=== PATIENT | female | born 1940 | race Caucasian/White ===

== ENCOUNTER 2019-04-18 16:37 | Inpatient (IN) | payer OTHER ==
[2019-04-18] MEDS ORDERED: CEFTRIAXONE/SWI 1gm 1 GM/10 ML SYR ONE (17:12)
[2019-04-18] MEDS ORDERED: NA CHLORIDE 0.9% 1,000 ML ONE (17:12)
[2019-04-18 17:43] LABS: Basophils % 0.4 % (0-1.3); Hematocrit 35.2 % (36.0-45.0); MPV 8.3 fL (7.6-11.3); Protime INR 1.24; RBC Red Blood Cell Count 3.95 M/uL (3.86-4.86)
[2019-04-18 17:56] LABS: ALT/SGPT 14 U/L (12-78); AST/SGOT 18 U/L (15-37); Alkaline Phosphatase 76 U/L (45-117); BUN Blood Urea Nitrogen 13 mg/dL (7-18); Bicarbonate 24 mmol/L (21-32); Bilirubin Direct 0.3 mg/dL (0-0.2); Glucose Level 153 mg/dL (74-106); NT PRO-BNP 1294 pg/mL (<450); Protein, Total 7.4 g/dL (6.4-8.2); Sodium Level 132 mmol/L (136-145); Troponin (Emerg Dept Use Only) < 0.02 ng/mL (0.0-0.045)
[2019-04-18 17:57] LABS: Magnesium 1.4 mg/dL (1.8-2.4)
--- NOTE | 2019-04-18 18:13 | RAD REPORT ---
EXAM DESCRIPTION: Yamila Single View04/18/2019 5:51 pm CLINICAL HISTORY: Cough COMPARISON: 2018 FINDINGS: The lungs appear clear of acute infiltrate. The heart is normal size. Right hemidiaphragm is mildly elevated
[2019-04-18] MEDS ORDERED: POTASSIUM 25 MEQ EFFERV TAB ONE (18:18)
[2019-04-18] MEDS ORDERED: Magnesium Sulfate 2gm IVPB 2 G/50 ML BAG IV ONE (18:19)
--- NOTE | 2019-04-18 18:46 | EDPHYS ---
Physician Documentation [facility] Name: Salena Heath Age: 78 yrs Sex: Female : 1940 Arrival Date: 04/18/2019 Time: 16:[address] Private MD: ED Physician Tanmay Marshall HPI: 04/18 17:07 This 78 yrs old Female presents to ER via Wheelchair with complaints of Flu black Symptoms. 17:07 The patient or guardian reports airway noise, cough. Onset: The symptoms/episode black began/occurred 2 day(s) ago. Modifying factors: The symptoms are alleviated by nothing. the symptoms are aggravated by nothing. fever, maliase. Associated signs and symptoms: Pertinent positives: fever. Severity of symptoms: At their worst the symptoms were mild in the emergency department the symptoms are unchanged. The patient has experienced similar episodes in the past, a few times. Historical: - Allergies: 16:46 Codeine; aj1 16:46 Demerol; aj1 - Home Meds: 16:46 Actos 15 mg Oral tab 1 tab once daily [Active]; carvedilol 25 mg Oral tab 1 tab every aj1 12 hours [Active]; Flexeril 10 mg Oral tab nightly [Active]; glimepiride 4 mg Oral tab twice a day [Active]; Januvia 15 mg Oral once daily [Active]; levothyroxine 75 mcg tab 1 tab once daily [Active]; Lexapro 10 mg Oral tab 1 tab once daily [Active]; Norvasc 2.5 mg Oral tab 1 tab once daily [Active]; - PMHx: 16:46 Diabetes - NIDDM; Hypertension; Thyroid problem; aj1 - Immunization history:: Flu vaccine is not up to date. - Coronavirus screen:: The patient has NOT traveled to [place] in the past 14 days. - Social history:: Smoking status: Patient/guardian denies using tobacco. - Family history:: not pertinent. - Ebola Screening: : Patient denies travel to an Ebola-affected area in the 21 days before illness onset. ROS: 17:07 Constitutional: Negative for fever, chills, and weight loss, Eyes: Negative for injury, black pain, redness, and discharge, ENT: Negative for injury, pain, and discharge, Neck: Negative for injury, pain, and swelling, Cardiovascular: Negative for chest pain, palpitations, and edema, Back: Negative for injury and pain, : Negative for injury, bleeding, discharge, and swelling, MS/Extremity: Negative for injury and deformity, Skin: Negative for injury, rash, and discoloration, Psych: Negative for depression, anxiety, suicide ideation, homicidal ideation, and hallucinations, Allergy/Immunology: Negative for hives, rash, and allergies, Endocrine: Negative for neck swelling, polydipsia, polyuria, polyphagia, and marked weight changes, Hematologic/Lymphatic: Negative for swollen nodes, abnormal bleeding, and unusual bruising. 17:07 Respiratory: Positive for cough. 17:07 Abdomen/GI: Positive for nausea. 17:07 Neuro: Positive for weakness. Exam: 17:07 Constitutional: This is a well developed, well nourished patient who is awake, alert, black and in no acute distress. Head/Face: Normocephalic, atraumatic. Eyes: Pupils equal round and reactive to light, extra-ocular motions intact. Lids and lashes normal. Conjunctiva and sclera are non-icteric and not injected. Cornea within normal limits. Periorbital areas with no swelling, redness, or edema. ENT: Nares patent. No nasal discharge, no septal abnormalities noted. Tympanic membranes are normal and external auditory canals are clear. Oropharynx with no redness, swelling, or masses, exudates, or evidence of obstruction, uvula midline. Mucous membranes moist. Neck: Trachea midline, no thyromegaly or masses palpated, and no cervical lymphadenopathy. Supple, full range of motion without nuchal rigidity, or vertebral point tenderness. No Meningismus. Chest/axilla: Normal chest wall appearance and motion. Nontender with no deformity. No lesions are appreciated. Cardiovascular: Regular rate and rhythm with a normal S1 and S2. No gallops, murmurs, or rubs. Normal PMI, no JVD. No pulse deficits. Respiratory: Lungs have equal breath sounds bilaterally, clear to auscultation and percussion. No rales, rhonchi or wheezes noted. No increased work of breathing, no retractions or nasal flaring. Abdomen/GI: Soft, non-tender, with normal bowel sounds. No distension or tympany. No guarding or rebound. No evidence of tenderness throughout. Back: No spinal tenderness. No costovertebral tenderness. Full range of motion. Skin: Warm, dry with normal turgor. Normal color with no rashes, no lesions, and no evidence of cellulitis. MS/ Extremity: Pulses equal, no cyanosis. Neurovascular intact. Full, normal range of motion. Neuro: Awake and alert, GCS 15, oriented to person, place, time, and situation. Cranial nerves II-XII grossly intact. Motor strength 5/5 in all extremities. Sensory grossly intact. Cerebellar exam normal. Normal gait. Psych: Awake, alert, with orientation to person, place and time. Behavior, mood, and affect are within normal limits. 17:07 Musculoskeletal/extremity: DVT Exam: No signs of deep vein thrombosis. no pain, no swelling, no tenderness, negative Homans' sign noted on exam, no appreciated bluish discoloration, no erythema, no increased warmth. Vital Signs: 16:46 BP 111 / 82; Pulse 92; Resp 20; Temp 97.4; Pulse Ox 95% on R/A; Weight 72.57 kg (R); aj1 Height 5 ft. 2 in. (157.48 cm) (R); Pain 0/10; 18:09 BP 122 / 67; Pulse 78; Resp 17; Pulse Ox 98% on R/A; ae4 19:35 BP 115 / 65; Pulse 75; Resp 19; Temp 98.1; Pulse Ox 96% ; rr5 20:15 BP 135 / 85; Pulse 70; Resp 17; Pulse Ox 99% on R/A; rr5 16:46 Body Mass Index 29.26 (72.57 kg, 157.48 cm) aj1 MDM: 16:[address] [facility] 17:09 Data reviewed: vital signs, nurses notes, lab test result(s), EKG, radiologic studies, black plain films. 04/18 17:03 Order name: Basic Metabolic Panel [facility] 04/18 17:03 Order name: CBC with Diff [facility] 04/18 17:03 Order name: LFT's [facility] 04/18 17:03 Order name: Magnesium [facility] 04/18 17:03 Order name: NT PRO-BNP [facility] 04/18 17:03 Order name: PT-INR [facility] 04/18 17:03 Order name: Troponin (emerg Dept Use Only) [facility] 04/18 17:03 Order name: Influenza Screen (a \T\ B) [facility] 04/18 17:03 Order name: Blood Culture Adult (2) [facility] 04/18 17:04 Order name: Urine Culture [facility] 04/18 17:06 Order name: Lactate [facility] 04/18 17:56 Order name: CBC with Automated Diff; Complete Time: 18:01 [facility] 04/18 17:56 Order name: Protime (+INR); Complete Time: 18:01 [facility] 04/18 17:56 Order name: Lactate; Complete Time: 18:01 [facility] 04/18 17:03 Order name: Chest Pa And Lat (2 Views) XRAY [facility] 04/18 17:59 Order name: Basic Metabolic Panel; Complete Time: 18:01 [facility] 04/18 17:59 Order name: Liver (Hepatic) Function; Complete Time: 18:01 [facility] 04/18 17:59 Order name: Troponin (Emerg Dept Use Only); Complete Time: 18:01 [facility] 04/18 17:59 Order name: NT PRO-BNP; Complete Time: 18:01 [facility] 04/18 17:59 Order name: Magnesium; Complete Time: 18:01 [facility] 04/18 18:06 Order name: Influenza Screen (A ; Complete Time: 18:41 [facility] 04/18 18:39 Order name: RAD; Complete Time: 18:41 [facility] 04/18 19:26 Order name: CT Stone Protocol [facility] 04/18 19:28 Order name: Urine Microscopic Only ct 04/18 19:29 Order name: Urine Dipstick--Ancillary (enter results) ct 04/18 20:03 Order name: Urine Microscopic Only [facility] 04/18 20:16 Order name: Urine Dipstick-Ancillary [facility] 04/18 20:24 Order name: CT [facility] 04/18 17:03 Order name: EKG; Complete Time: 17:04 [facility] 04/18 17:03 Order name: Cardiac monitoring; Complete Time: 17:25 [facility] 04/18 17:03 Order name: EKG - Nurse/Tech; Complete Time: 17:25 [facility] 04/18 17:03 Order name: IV Saline Lock; Complete Time: 17:25 [facility] 04/18 17:03 Order name: Labs collected and sent; Complete Time: 17:25 [facility] 04/18 17:03 Order name: O2 Per Protocol; Complete Time: 17:25 [facility] 04/18 17:03 Order name: O2 Sat Monitoring; Complete Time: 17:25 [facility] 04/18 17:04 Order name: Urine Dipstick-Ancillary (obtain specimen); Complete Time: 19:44 [facility] Administered Medications: 17:20 Drug: NS 0.9% 1000 ml Route: IV; Rate: 1 bolus; Site: right antecubital; ae4 18:03 Follow up: IV Status: Completed infusion; IV Intake: 1000ml ae4 17:54 Drug: Rocephin 1 grams Route: IV; Rate: per protocol; Site: right antecubital; ae4 19:00 Follow up: Response: No adverse reaction; IV Status: Completed infusion; IV Intake: [id number] 18:15 Drug: Potassium Effervescent Tablet 50 mEq Route: PO; ae4 19:01 Follow up: Response: No adverse reaction ae4 18:15 Drug: Magnesium Sulfate 2 grams Route: IVPB; Infused Over: 2 hrs; Site: right ae4 antecubital; 20:25 Follow up: Response: No adverse reaction; IV Status: Completed infusion; IV Intake: rr5 100ml 20:27 Drug: NS 0.9% with KCl 20 mEq/L 1000 ml Route: IV; Rate: 125 ml/hr; Site: right rr5 antecubital; 20:27 Follow up: IV Status: Infusion continued upon admission rr5 Disposition: 04/18/19 18:45 Hospitalization ordered by Carlos Garner for Inpatient Admission. Preliminary diagnosis are Fever, unspecified, Hypokalemia, Hypomagnesemia, Syncope and collapse - near, Urinary tract infection, site not specified, Type 2 diabetes mellitus. - Bed requested for Telemetry/MedSurg (Inpatient). - Status is Inpatient Admission. rr5 - Condition is Stable. - Problem is new. - Symptoms have improved. Signatures: Dispatcher [employer] EDGauri Katz RN RN aj1 Dominga Phillips RN RN mw Anderson, Corey, MD MD cha Roque, Raymond, RN RN rr5 Serjio Mark RN RN ae4 Corrections: (The following items were deleted from the chart) 19:13 18:45 Hospitalization Ordered by Carlos Garner MD for Inpatient Admission. Preliminary diagnosis is Fever, unspecified; Hypokalemia; Hypomagnesemia; Syncope and collapse - near. Bed requested for Telemetry/MedSurg (Inpatient). Status is Inpatient Admission. Condition is Stable. Problem is new. Symptoms have improved. black 19:27 19:13 04/18/2019 18:45 Hospitalization Ordered by Carlos Garner MD for Inpatient black Admission. Preliminary diagnosis is Fever, unspecified; Hypokalemia; Hypomagnesemia; Syncope and collapse - near. Bed requested for Telemetry/MedSurg (Inpatient). Status is Inpatient Admission. Condition is Stable. Problem is new. Symptoms have improved. mw 19:27 19:27 04/18/2019 18:45 Hospitalization Ordered by Carlos Garner MD for Inpatient black Admission. Preliminary diagnosis is Fever, unspecified; Hypokalemia; Hypomagnesemia; Syncope and collapse - near; Urinary tract infection, site not specified. Bed requested for Telemetry/MedSurg (Inpatient). Status is Inpatient Admission. Condition is Stable. Problem is new. Symptoms have improved. black 20:57 19:27 04/18/2019 18:45 Hospitalization Ordered by Carlos Garner MD for Inpatient rr5 Admission. Preliminary diagnosis is Fever, unspecified; Hypokalemia; Hypomagnesemia; Syncope and collapse - near; Urinary tract infection, site not specified; Type 2 diabetes mellitus. Bed requested for Telemetry/MedSurg (Inpatient). Status is Inpatient Admission. Condition is Stable. Problem is new. Symptoms have improved. black
--- NOTE | 2019-04-18 18:46 | ER ---
Nurse's Notes [facility] Name: Salena Heath Age: 78 yrs Sex: Female : 1940 Arrival Date: 04/18/2019 Time: 16:[address] Private MD: Diagnosis: Fever, unspecified;Hypokalemia;Hypomagnesemia;Syncope and collapse-near;Urinary tract infection, site not specified;Type 2 diabetes mellitus Presentation: 04/18 16:44 Presenting complaint: Patient states: "its started night with chills and fever aj1 and its just been like that every day." Denies cough, congestion, Denies N/V/D. Transition of care: patient was not received from another setting of care. Onset of symptoms was April 2019. Risk Assessment: Do you want to hurt yourself or someone else? Patient reports no desire to harm self or others. Initial Sepsis Screen: Does the patient meet any 2 criteria? HR > 90 bpm. No. Patient's initial sepsis screen is negative. Does the patient have a suspected source of infection? No. Patient's initial sepsis screen is negative. Care prior to arrival: None. 16:44 Method Of Arrival: Wheelchair aj1 16:44 Acuity: LUZ 3 aj1 Triage Assessment: 16:46 General: Appears in no apparent distress. comfortable, Behavior is calm, cooperative, aj1 appropriate for age. Pain: Denies pain. EENT: Denies nasal congestion, nasal discharge. Neuro: Level of Consciousness is awake, alert, obeys commands. Cardiovascular: Patient's skin is warm and dry. Respiratory: Airway is patent Respiratory effort is even, unlabored, Respiratory pattern is regular, symmetrical. Historical: - Allergies: 16:46 Codeine; aj1 16:46 Demerol; aj1 - Home Meds: 16:46 Actos 15 mg Oral tab 1 tab once daily [Active]; carvedilol 25 mg Oral tab 1 tab every aj1 12 hours [Active]; Flexeril 10 mg Oral tab nightly [Active]; glimepiride 4 mg Oral tab twice a day [Active]; Januvia 15 mg Oral once daily [Active]; levothyroxine 75 mcg tab 1 tab once daily [Active]; Lexapro 10 mg Oral tab 1 tab once daily [Active]; Norvasc 2.5 mg Oral tab 1 tab once daily [Active]; - PMHx: 16:46 Diabetes - NIDDM; Hypertension; Thyroid problem; aj1 - Immunization history:: Flu vaccine is not up to date. - Coronavirus screen:: The patient has NOT traveled to [place] in the past 14 days. - Social history:: Smoking status: Patient/guardian denies using tobacco. - Family history:: not pertinent. - Ebola Screening: : Patient denies travel to an Ebola-affected area in the 21 days before illness onset. Screenin:41 Abuse screen: Denies threats or abuse. Denies injuries from another. Nutritional rr5 screening: No deficits noted. Tuberculosis screening: No symptoms or risk factors identified. Fall Risk IV access (20 points). Total Cheng Fall Scale indicates No Risk (0-24 pts). Assessment: 18:09 Reassessment: No changes from previously documented assessment. Patient and/or family ae4 updated on plan of care and expected duration. Pain level reassessed. Patient encouraged to provide urine sample. 18:46 Reassessment: pt encouraged to provide a urine specimen at this time, pt denies having sg the urge to urinate, notified. 19:20 General: Appears in no apparent distress. comfortable, Behavior is calm, cooperative, rr5 appropriate for age, Reports chills for >3 days, fever for > 3 days, feeling ill for > 3 days. Pain: Pain: Denies pain. Neuro: Level of Consciousness is awake, alert, obeys commands, Oriented to person, place, time, situation, Appropriate for age. Cardiovascular: Capillary refill < 3 seconds Patient's skin is warm and dry. Respiratory: Reports Airway is patent Respiratory effort is even, unlabored, Respiratory pattern is regular, symmetrical. GI: No signs and/or symptoms were reported involving the gastrointestinal system. : No signs and/or symptoms were reported regarding the genitourinary system. EENT: No signs and/or symptoms were reported regarding the EENT system. Derm: Skin is intact, is fragile, is thin, Skin temperature is warm. Musculoskeletal: Circulation, motion, and sensation intact. Capillary refill < 3 seconds. 19:45 Reassessment: Patient appears in no apparent distress at this time. Patient is alert, rr5 oriented x 3, equal unlabored respirations, skin warm/dry/pink. send for CT stone protocol. 20:28 Reassessment: Patient appears in no apparent distress at this time. Patient is alert, rr5 oriented x 3, equal unlabored respirations, skin warm/dry/pink. send to medical surgical floor. no complaints made. Vital Signs: 16:46 BP 111 / 82; Pulse 92; Resp 20; Temp 97.4; Pulse Ox 95% on R/A; Weight 72.57 kg (R); aj1 Height 5 ft. 2 in. (157.48 cm) (R); Pain 0/10; 18:09 BP 122 / 67; Pulse 78; Resp 17; Pulse Ox 98% on R/A; ae4 19:35 BP 115 / 65; Pulse 75; Resp 19; Temp 98.1; Pulse Ox 96% ; rr5 20:15 BP 135 / 85; Pulse 70; Resp 17; Pulse Ox 99% on R/A; rr5 16:46 Body Mass Index 29.26 (72.57 kg, 157.48 cm) aj1 ED Course: 16:41 Patient arrived in ED. mr 16:45 Triage completed. aj1 16:46 Tanmay Marshall MD is Attending Physician. black 16:46 Arm band placed on Patient placed in an exam room. aj1 16:55 Serjio Mark, AVILA is Primary Nurse. ae4 17:15 EKG done, by ED staff, reviewed by Tanmay Marshall MD. jp3 17:20 Patient maintains SpO2 saturation greater than 95% on room air. jp3 17:21 Safety checks: Family/friend present: yes. Bed in low position. Call light in reach. jp3 Side rails up X 1. Side rails up X2. Warm blanket given. Pillow given. Verbal reassurance given. potline monitor on. Pulse ox on. NIBP on. 17:57 Notified ED physician of a critical lab result(s). mag 1.4. sg 18:44 Carlos Garner MD is Hospitalizing Provider. black 19:41 No provider procedures requiring assistance completed. Patient admitted, IV remains in rr5 place. intact, No redness/swelling at site. 19:47 CT completed. Patient tolerated procedure well. Patient moved back from CT. bq Administered Medications: 17:20 Drug: NS 0.9% 1000 ml Route: IV; Rate: 1 bolus; Site: right antecubital; ae4 18:03 Follow up: IV Status: Completed infusion; IV Intake: 1000ml ae4 17:54 Drug: Rocephin 1 grams Route: IV; Rate: per protocol; Site: right antecubital; ae4 19:00 Follow up: Response: No adverse reaction; IV Status: Completed infusion; IV Intake: [id number] 18:15 Drug: Potassium Effervescent Tablet 50 mEq Route: PO; ae4 19:01 Follow up: Response: No adverse reaction ae4 18:15 Drug: Magnesium Sulfate 2 grams Route: IVPB; Infused Over: 2 hrs; Site: right ae4 antecubital; 20:25 Follow up: Response: No adverse reaction; IV Status: Completed infusion; IV Intake: rr5 100ml 20:27 Drug: NS 0.9% with KCl 20 mEq/L 1000 ml Route: IV; Rate: 125 ml/hr; Site: right rr5 antecubital; 20:27 Follow up: IV Status: Infusion continued upon admission rr5 Intake: 18:03 IV: 1000ml; Total: 1000ml. ae4 19:00 IV: 10ml; Total: 1010ml. rr5 20:25 IV: 100ml; Total: 1110ml. rr5 Outcome: 18:45 Decision to Hospitalize by Provider. black 19:41 Admitted to Med/surg accompanied by tech, via stretcher, room 207, Report called to rr5 thais 19:41 Condition: stable 19:41 Instructed on the need for admit. 20:57 Patient left the ED. rr5 Signatures: Gauri Giron RN RN [email or web address] Giovanny Peres RN RN sg Anderson, Corey, MD MD cha Rivera, Mary mr Quilty, Betty bq Pisarski, Jacob jp3 Adams Rizvi RN RN rr5 Serjio Mark RN RN ae4
[2019-04-18] MEDS ORDERED: ONDANSETRON 4 MG/2 ML VIAL IV PRN (18:49)
[2019-04-18] MEDS ORDERED: ACETAMINOPHEN 325 MG TABLET PO PRN (18:49)
[2019-04-18] MEDS ORDERED: MORPHINE 2 MG/ML SYR IV PRN (18:49)
[2019-04-18] MEDS: NS KCL 20MEQ 20 MEQ/1,000 ML BAG IV SCH (19:00)
[2019-04-18 20:03] LABS: Urine Bacteria >50 /HPF (<20); Urine Culture Reflex Order NOT NEEDED; Urine RBC <5 /HPF (NONE SEEN)
--- NOTE | 2019-04-18 20:08 | RAD REPORT ---
EXAM DESCRIPTION: CT - Stone Protocol - 04/18/2019 7:47 pm CLINICAL HISTORY: Abdominal pain. COMPARISON: None. TECHNIQUE: Computed axial tomography of the abdomen pelvis was obtained without oral or IV contrast. Lack of IV and oral contrast limits evaluation of solid organs, bowel, and vessels. Coronal reformat vicki images were obtained and reviewed. All CT scans are performed using dose optimization technique as appropriate and may include automated exposure control or mA/KV adjustment according to patient size. FINDINGS: A renal calculus is not seen. An ureteral calculus is not noted. A bladder calculus is not present. Cortical thinning involves the kidneys The liver, spleen, pancreas and adrenals appear grossly normal There is no evidence of diverticulitis. A hysterectomy has been performed Appears to be a small left posterior-lateral disc herniation L4-5 IMPRESSION: Negative for a genitourinary calculus Cortical thinning involves the kidneys perhaps secondary prior inflammation
[2019-04-18 20:13] LABS: Urine Blood TRACE (NEG); Urine Glucose NEGATIVE (NEG); Urine Protein NEGATIVE (NEG); Urine Specific Gravity <1.005 (1.005-1.030)
[2019-04-18] MEDS: MAGNESIUM OXIDE 400 MG TAB PO SCH (21:00)
[2019-04-18] MEDS ORDERED: POTASSIUM 25 MEQ EFFERV TAB PO SCH (21:00)
[2019-04-18] MEDS ORDERED: FAMOTIDINE 20 MG/2 ML VIAL IV SCH (21:00)
[2019-04-18] MEDS: IPRATROPIUM BROM 0.5MG/2.5ML NEB SCH (22:15)
[2019-04-18] MEDS: LEVALBUTEROL 1.25 MG/3 ML NEB NEB SCH (22:15)
[2019-04-18 22:26] VITALS: BMI 29.2
[2019-04-19] MEDS: LEVALBUTEROL 1.25 MG/3 ML NEB NEB SCH ×4 (03:15→19:28)
[2019-04-19] MEDS: IPRATROPIUM BROM 0.5MG/2.5ML NEB SCH ×4 (03:15→19:28)
[2019-04-19] MEDS: NS KCL 20MEQ 20 MEQ/1,000 ML BAG IV SCH (04:39)
[2019-04-19 05:47] LABS: Absolute Lymphocytes (CBC) 1.2 K/uL (0.7-4.9); Basophils % 0.4 % (0-1.3); Hematocrit 33.5 % (36.0-45.0); Lymphocytes % 15.4 % (15.3-44.8); MPV 8.1 fL (7.6-11.3); RBC Red Blood Cell Count 3.73 M/uL (3.86-4.86)
[2019-04-19 05:52] LABS: Magnesium 1.8 mg/dL (1.8-2.4); Potassium 3.7 mmol/L (3.5-5.1)
[2019-04-19] MEDS ORDERED: MAGNESIUM SULFATE 1 gm IVPB 1 GM/100 ML BAG IV ONE (08:00)
[2019-04-19] MEDS ORDERED: POTASSIUM 25 MEQ EFFERV TAB PO ONE (08:00)
--- NOTE | 2019-04-19 08:10 | EKG ---
Test Date: 2019-04-18 Test Time: 17:13:57 [employer] Technician: VENKATESH MEASUREMENT RESULTS: Intervals: Rate: 83 MD: 256 QRSD: 112 QT: 406 QTc: 477 [place]: P: 63 MD: 256 QRS: 37 T: 19 INTERPRETIVE STATEMENTS: Sinus rhythm with 1st degree AV block Low voltage QRS Incomplete right bundle branch block Prolonged QT Abnormal ECG Compared to ECG 03/31/2017 13:17:20 Incomplete right bundle-branch block now present Prolonged QT interval now present Electronically Signed On 04-19-19 08:09:25 [employer]IRROR MAKER by Bertrand Mckeon
--- NOTE | 2019-04-19 08:11 | RAD REPORT ---
EXAM DESCRIPTION: Yamila Single View04/19/2019 5:32 am CLINICAL HISTORY: Cough COMPARISON: April 18 FINDINGS: The lungs appear clear of acute infiltrate. The heart is normal size IMPRESSION: No acute abnormalities displayed
[2019-04-19] MEDS: NA CHLORIDE 0.9% 1,000 ML IV SCH (08:31)
[2019-04-19] MEDS: POTASSIUM 25 MEQ EFFERV TAB PO SCH (08:33)
[2019-04-19] MEDS: CEFTRIAXONE/SWI 1gm 1 GM/10 ML SYR IV SCH ×2 (08:40→20:45)
[2019-04-19] MEDS: MAGNESIUM OXIDE 400 MG TAB PO SCH ×2 (08:40→20:45)
[2019-04-19] MEDS: ENOXAPARIN 40 MG/0.4 ML SQ SCH (08:40)
[2019-04-19] MEDS ORDERED: CEFTRIAXONE 1 GM/NS 50 ML 1 GM/50 ML BAG IV SCH (09:00)
--- NOTE | 2019-04-19 11:23 | EKG ---
Test Date: 2019-04-19 Test Time: 08:11:58 Enrollment Nurse: HERMILO MEASUREMENT RESULTS: Intervals: Rate: 80 AR: 278 QRSD: 104 QT: 410 QTc: 472 [place]: P: 67 AR: 278 QRS: 41 T: 29 INTERPRETIVE STATEMENTS: Sinus rhythm with 1st degree AV block Low voltage QRS Incomplete right bundle branch block Abnormal ECG Compared to ECG 04/18/2019 17:13:57 Prolonged QT interval no longer present Electronically Signed On 04-19-19 11:23:08 DISMANTLER by Bertrand Mckeon
--- NOTE | 2019-04-20 01:06 | HP ---
Date of Admission: 04/19/2019 Chief Complaint: Feeling weak, tired, sleepy, chills. History Of Present Illness: Ms. Heath is a very pleasant 78-year-old pleasant female patient who was doing fine until last week; on , she started to have generalized body ache and chills. Next day which is as of Friday, she started to feel really tired, weak and was feeling very sleepy and started to feel hot and cold. All the symptoms continued and progressively got worse. Denies any nausea, vomiting, abdominal pain. No diarrhea. Her appetite has been poor for last few days. No fall. No injury. No chest pain, shortness of breath. No loss of consciousness. She came into emergency room yesterday with this. After she was evaluated, she was admitted to the hospital. When I saw her this morning, she was feeling better than yesterday. Medications: List reviewed. Review of Systems: Constitutional: As mentioned above. All other systems reviewed and negative. Allergies: SHE IS ALLERGIC TO CODEINE AND DEMEROL. Social History: Negative for smoking, alcohol use. Family History: Significant for fibromyalgia, osteoarthritis, hypertension, hyperlipidemia. Past Surgical History: Appendectomy, back surgery, cholecystectomy, hysterectomy, thyroidectomy, and tonsillectomy. Past Medical History: Type 2 diabetes mellitus, hypothyroidism, hypertension, osteoarthritis at multiple sites, hyperlipidemia, diverticulosis, depression, osteopenia, gastroesophageal reflux disease. Physical Examination: Vital signs: Temperature 97.7, pulse 69, respiratory rate 18, blood pressure 137/58, oxygen saturation 96%. Height 5 feet 2 inches, weight 160 pounds. General: Awake, alert, oriented, not in distress. HEENT: Head atraumatic, normocephalic. Conjunctivae nonerythematous. Sclerae white. Mouth, no thrush or edema noted. Ears/Nose, no mass, lesion, discharge noted. Neck: Supple. No JVD, lymph nodes, bruit, thyromegaly noted. Lungs: Bilateral good equal air entry. Clear to auscultation. No rhonchi. No rales. Heart: Normal heart sounds, no murmur or gallop. Abdomen: Soft, bowel sounds normal. No guarding, rigidity, tenderness, mass, hepatosplenomegaly, distention, or bruit noted. Extremities: No leg edema. No calf tenderness. Skin: No rash, ulcer, cellulitis. Lymphatics: No lymph node enlargement in neck, supraclavicular, infraclavicular region. Neuro: No focal neurological deficit. Chest: Unremarkable. External Genitalia: Deferred. Rectal: Deferred. Laboratory Data: Yesterday, white count 10, hemoglobin 11.9, platelets 260. Today, white count 8.1, hemoglobin 11.6, platelets 230. Yesterday, sodium 132, potassium 3, chloride 100, bicarb 24, BUN 13, creatinine 1.10, glucose 153, magnesium 1.4. Liver function tests unremarkable. Troponin less than 0.02. This morning, magnesium 1.8, sodium 135, potassium 3.7, chloride 104, bicarb 23 , BUN 8, creatinine 0.82, glucose 97. Urinalysis positive for nitrite, esterase 1+, wbc 20-50, bacteria more than 50. Chest x-ray, no acute cardiopulmonary changes. CAT scan of the abdomen for kidney stone was negative for any acute changes. No kidney stone. Impression: 1. Acute pyelonephritis. 2. Rule out sepsis. 3. Type 2 diabetes mellitus. 4. Hypertension. 5. Hyperlipidemia. 6. Anemia, unspecified. 7. Hypokalemia. 8. Hypomagnesemia. 9. Hypothyroidism. Plan: Admit patient to hospital for further evaluation and management of this problem. Patient is appropriate for inpatient and is expected to spend 2 midnight in hospital. We will continue IV fluid, but change it to normal saline at 50 mL/hour. We will discontinue IV potassium replacement that she started getting it in the emergency room, since admission potassium is normal. We will discontinue oral potassium replacement, which was ordered on scheduled basis. Potassium and magnesium are normal. We will continue current IV antibiotics. Follow up on urine culture, blood culture, so far cultures negative. Home medications will be continued. We will give DVT prophylaxis per order. Consult Physical Therapy to help ambulate the patient. I will see her tomorrow for followup. Possible discharge to go home with appropriate culture specific antibiotic therapy, once the final result is available. Details plan of treatment discussed with the patient. KIMBERLEY/MODL Voice ID: [id number] MTDAsia
[2019-04-20] MEDS: LEVALBUTEROL 1.25 MG/3 ML NEB NEB SCH (01:25)
[2019-04-20] MEDS: IPRATROPIUM BROM 0.5MG/2.5ML NEB SCH (01:25)
[2019-04-20] MEDS: NA CHLORIDE 0.9% 1,000 ML IV SCH (05:01)
[2019-04-20 06:11] LABS: Potassium 3.5 mmol/L (3.5-5.1)
[2019-04-20] MEDS: ENOXAPARIN 40 MG/0.4 ML SQ SCH (08:10)
[2019-04-20] MEDS: CEFTRIAXONE/SWI 1gm 1 GM/10 ML SYR IV SCH (08:10)
[2019-04-20] MEDS: MAGNESIUM OXIDE 400 MG TAB PO SCH (08:10)
[2019-04-20] MEDS: POTASSIUM 25 MEQ EFFERV TAB PO SCH (08:11)
[2019-04-20 08:50] VITALS: BP 165/81; TEMP 98.5
[2019-04-20 09:40] VITALS: O2SAT 96
--- NOTE | 2019-04-21 01:52 | DS ---
Date of Discharge: 04/20/2019 Disposition: Discharged to go home. Physical Examination: HEENT: Unremarkable. Lungs: Clear to auscultation. Cardiac: Heart sounds normal. Abdomen: Soft. Bowel sounds normal. No guarding, rigidity, tenderness, distention. Extremities: No leg edema. Laboratory Data: Upon admission, white count 10, hemoglobin 11.9, platelets 260, yesterday white cou nt 8.1, hemoglobin 11.6, platelets 230. Urine culture growing E coli and it is sensitive to almost a ll the antibiotics. Sodium 137 today, potassium 3.5, chloride 104, bicarb 25, BUN 6, creatinine 0.77 , glucose 134, magnesium 2. Upon admission, magnesium was 1.4 and potassium was 3 and sodium 132. Hospital Course: An 78-year-old pleasant female, admitted to the hospital with complaints of feeling weak, feeling tired, sleepy, and having chills. Please see dictated H and P for more information. After patient came into emergency room, she was evaluated, admitted to the hospital. She was admitte d to the hospital with acute pyelonephritis type of problem. IV antibiotic, IV fluid was given. Her condition improved. Blood culture remained negative. Urine culture final report came back today gr owing E coli and she received IV antibiotic and today, decision was made to discharge her to go home with oral antibiotic. Her potassium and magnesium level were low which was corrected. Her overall c ondition improved. She is feeling much better. Ambulating well. Has good appetite. She was discha rged to go home in stable condition. Final Diagnoses: 1.Acute pyelonephritis. 2.Hypokalemia. 3.Hypomagnesemia. 4.Hyponatremia. 5.Hypothyroidism. 6.Hypertension. 7.Type 2 diabetes mellitus. 8.Hyperlipidemia. 9.Anemia, unspecified. Discharge Medications And Instructions: 1.Continue all prior home medications. 2.Take Bactrim DS 1 tablet 2 times a day for 10 days. 3.Follow up at my office on 04/22/2019 and the patient to call office for appointment. KIMBERLEY/MODL Voice ID: [id number] Report ID: [id number]
== END 2019-04-20 10:10 | disposition home or self-care (01) | DRG 690 ==
LOC: ER 16:37 → ERHOLD 18:48 → 2ND 19:50
PROVIDERS: ADMIT Internal Medicine; ATTEND Internal Medicine
DX: N10 Acute pyelonephritis (principal); E87.1 Hypo-osmolality and hyponatremia; E11.9 Type 2 diabetes mellitus without complications; E03.9 Hypothyroidism, unspecified; I10 Essential (primary) hypertension; M15.9 Polyosteoarthritis, unspecified; E78.5 Hyperlipidemia, unspecified; K21.9 Gastro-esophageal reflux disease without esophagitis; B96.20 Unspecified Escherichia coli [E. coli] as the cause of diseases classified elsewhere; E87.6 Hypokalemia; E83.42 Hypomagnesemia; D64.9 Anemia, unspecified
CPT/HCPCS: 36415; 71045; 74176; 76377; 80048; 80076; 81003; 81015; 83605; 83735; 83880; 84484; 85025; 85610; 87040; 87077; 87086; 87088; 87186; 87804; 93005; 94640; 96361; 96365; 96366; 97112; 97116; 97161; 99285; J0696; J1650; J3475; J7030

== ENCOUNTER 2020-06-17 12:39 | Emergency (ER) | payer OTHER ==
[2020-06-17] MEDS ORDERED: FENTANYL CITR 100 MCG/2 ML ONE (14:56)
[2020-06-17] MEDS ORDERED: MUPIROCIN 2% OINT 22GM TUBE TOP ONE (14:56)
[2020-06-17] MEDS ORDERED: NA CHLORIDE 0.9% 1,000 ML ONE (14:56)
[2020-06-17 15:09] LABS: Absolute Lymphocytes (CBC) 1.2 K/uL (0.7-4.9); Basophils % 0.6 % (0-1.3); Lymphocytes % 16.8 % (15.3-44.8); MPV 8.3 fL (7.6-11.3); RBC Red Blood Cell Count 4.31 M/uL (3.86-4.86)
[2020-06-17 15:26] LABS: Potassium 4.6 mmol/L (3.5-5.1)
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
--- NOTE | 2020-06-17 16:03 | EDPHYS ---
Physician Documentation [facility] Name: Salena Heath Age: 79 yrs Sex: Female : 1940 Arrival Date: 06/17/2020 Time: 13:18 Bed 8 Private MD: ED Physician Tanmay Marshall HPI: 06/17 14:22 This 79 yrs old Female presents to ER via EMS with complaints of wrist pain, black knee pain. 14:22 The patient or guardian reports injury, pain, swelling, tenderness. The complaints black affect the forehead and right muslim. Context of injury: The problem was sustained at home, on a street or driveway. Onset: The symptoms/episode began/occurred just prior to arrival. Associated signs and symptoms: Loss of consciousness: This patient did not experience any loss of consciousness. The patient or guardian complains of decreased range of motion, pain, that is acute. The complaints affect the right antecubital area, right wrist and right elbow. Context: The problem was sustained at home, resulted from a direct blow, by a door, drug in driveway. Treatment prior to arrival includes: no previous treatment. Historical: - Allergies: 13:29 Codeine; jl7 13:29 Demerol; jl7 15:03 Iodine; jl7 - Home Meds: 13:29 Actos 15 mg Oral tab 1 tab once daily [Active]; carvedilol 25 mg Oral tab 1 tab every jl7 12 hours [Active]; Flexeril 10 mg Oral tab nightly [Active]; glimepiride 4 mg Oral tab twice a day [Active]; Januvia 15 mg Oral once daily [Active]; levothyroxine 75 mcg tab 1 tab once daily [Active]; Lexapro 10 mg Oral tab 1 tab once daily [Active]; Norvasc 2.5 mg Oral tab 1 tab once daily [Active]; - PMHx: 13:29 Diabetes - NIDDM; Hypertension; Thyroid problem; jl7 - Immunization history:: Adult Immunizations up to date, Last tetanus immunization: unknown. - Social history:: Smoking status: Patient denies any tobacco usage or history of. - Family history:: not pertinent. ROS: 14:22 Constitutional: Negative for fever, chills, and weight loss, Eyes: Negative for injury, black pain, redness, and discharge, ENT: Negative for injury, pain, and discharge, Neck: Negative for injury, pain, and swelling, Cardiovascular: Negative for chest pain, palpitations, and edema, Respiratory: Negative for shortness of breath, cough, wheezing, and pleuritic chest pain, Abdomen/GI: Negative for abdominal pain, nausea, vomiting, diarrhea, and constipation, Back: Negative for injury and pain, : Negative for injury, bleeding, discharge, and swelling, Skin: Negative for injury, rash, and discoloration, Psych: Negative for depression, anxiety, suicide ideation, homicidal ideation, and hallucinations, Allergy/Immunology: Negative for hives, rash, and allergies, Endocrine: Negative for neck swelling, polydipsia, polyuria, polyphagia, and marked weight changes, Hematologic/Lymphatic: Negative for swollen nodes, abnormal bleeding, and unusual bruising. 14:22 MS/extremity: Positive for decreased range of motion, pain, rash, tenderness. Exam: 14:22 Constitutional: This is a well developed, well nourished patient who is awake, alert, black and in no acute distress. Head/Face: Normocephalic, atraumatic. Eyes: Pupils equal round and reactive to light, extra-ocular motions intact. Lids and lashes normal. Conjunctiva and sclera are non-icteric and not injected. Cornea within normal limits. Periorbital areas with no swelling, redness, or edema. ENT: Nares patent. No nasal discharge, no septal abnormalities noted. Tympanic membranes are normal and external auditory canals are clear. Oropharynx with no redness, swelling, or masses, exudates, or evidence of obstruction, uvula midline. Mucous membranes moist. Neck: Trachea midline, no thyromegaly or masses palpated, and no cervical lymphadenopathy. Supple, full range of motion without nuchal rigidity, or vertebral point tenderness. No Meningismus. Chest/axilla: Normal chest wall appearance and motion. Nontender with no deformity. No lesions are appreciated. Cardiovascular: Regular rate and rhythm with a normal S1 and S2. No gallops, murmurs, or rubs. Normal PMI, no JVD. No pulse deficits. Respiratory: Lungs have equal breath sounds bilaterally, clear to auscultation and percussion. No rales, rhonchi or wheezes noted. No increased work of breathing, no retractions or nasal flaring. Abdomen/GI: Soft, non-tender, with normal bowel sounds. No distension or tympany. No guarding or rebound. No evidence of tenderness throughout. Back: No spinal tenderness. No costovertebral tenderness. Full range of motion. Skin: Warm, dry with normal turgor. Normal color with no rashes, no lesions, and no evidence of cellulitis. MS/ Extremity: Pulses equal, no cyanosis. Neurovascular intact. Full, normal range of motion. Neuro: Awake and alert, GCS 15, oriented to person, place, time, and situation. Cranial nerves II-XII grossly intact. Motor strength 5/5 in all extremities. Sensory grossly intact. Cerebellar exam normal. Normal gait. Psych: Awake, alert, with orientation to person, place and time. Behavior, mood, and affect are within normal limits. Vital Signs: 13:23 BP 191 / 85; Pulse 65; Resp 17 S; Temp 97.9(O); Pulse Ox 100% on R/A; Weight 74.39 kg jl7 (R); 13:33 BP 166 / 89; Pulse 61; Resp 15; Pulse Ox 97% ; jl7 14:15 BP 182 / 79; Pulse 62; Resp 15; Pulse Ox 97% ; jl7 [place] Coma Score: 14:15 Eye Response: spontaneous(4). Verbal Response: oriented(5). Motor Response: obeys jl7 commands(6). Total: 15. 14:31 Eye Response: spontaneous(4). Verbal Response: oriented(5). Motor Response: obeys black commands(6). Total: 15. Trauma Score (Adult): 13:18 Eye Response: spontaneous(1); Verbal Response: oriented(1); Motor Response: obeys jl7 commands(2); Systolic BP: > 89 mm Hg(4); Respiratory Rate: 10 to 29 per min(4); Alicia Score: 15; Trauma Score: 12 MDM: 13:22 Patient medically screened. [facility] 14:31 Differential diagnosis: Contusion of Hematoma on Laceration of Intracranial bleed- [facility] Concussion cerebral contusion, closed fracture, contusion, abrasion. Data reviewed: vital signs, nurses notes, lab test result(s), radiologic studies, CT scan. Data interpreted: pvc monitor: rate is 61 beats/min, rhythm is regular, Pulse oximetry: on room air is 97 %. Test interpretation: by ED physician or midlevel provider: plain radiologic studies. Counseling: I had a detailed discussion with the patient and/or guardian regarding: the historical points, exam findings, and any diagnostic results supporting the discharge/admit diagnosis, lab results, radiology results, the need for outpatient follow up. 06/17 14:21 Order name: Basic Metabolic Panel; Complete Time: 15:32 [facility] 06/17 14:21 Order name: CBC with Diff; Complete Time: 16:02 [facility] 06/17 14:21 Order name: Type And Screen [facility] 06/17 14:21 Order name: Wrist Right 3 View XRAY; Complete Time: 16:02 [facility] 06/17 15:10 Order name: Head C Spine Cap Wo Con; Complete Time: 16:02 [facility] 06/17 14:21 Order name: Labs collected and sent; Complete Time: 15:16 [facility] 06/17 14:21 Order name: Dressing - Wound; Complete Time: 15:16 [facility] 06/17 14:21 Order name: Gloves, Sterile; Complete Time: 15:16 [facility] 06/17 14:21 Order name: Setup Suture Tray; Complete Time: 15:16 [facility] Administered Medications: 14:40 Drug: NS 0.9% 1000 ml Route: IV; Rate: 1 bolus; Site: left hand; aa5 15:30 Follow up: IV Status: Completed infusion jl7 14:40 Drug: fentaNYL (PF) 25 mcg Route: IVP; Site: left hand; aa5 15:00 Follow up: Response: No adverse reaction; Pain is decreased jl7 14:47 Not Given (Physician Discretion): fentaNYL (PF) 25 mcg IVP once; RASS on ADMIN: aa5 Combtv4, Very Agttd3, Agttd2, Rstlss1, AlertClm0, Drwsy-1, Lt Sdtn-2, Mod Sdtn-3, Dp Sdtn-4, UnArsble-5 15:48 Drug: Bactroban (mupirocin) Ointment 2 % 1 application Route: Topical; Site: affected jl7 area; 16:45 Drug: traMADol 25 mg Route: PO; jl7 17:05 Follow up: Response: No adverse reaction jl7 Disposition: 06/17/20 16:02 Discharged to Home. Impression: Unspecified open wound of right hand, Abrasion of right forearm, Abrasion, left knee, Abrasion, right knee, Superficial injury of head, Strain of muscle, fascia and tendon at neck level, Fall due to bumping against object, Pain in right wrist. - Condition is Stable. - Discharge Instructions: Head Injury, Adult, Muscle Strain, Skin Tear Care, Deep Skin Avulsion, Cervical Sprain, Ruyx-nu-Kuiv, Skin Tear Care, Yguh-ky-Pazr, Head Injury, Adult, Gzdw-et-Hgzo. - Prescriptions for Bactroban 2 % Topical Ointment - Apply to affected area 1 application by TOPICAL route every 12 hours; 45 gram. Tramadol 50 mg Oral Tablet - take 1 tablet by ORAL route every 8 hours as needed; 20 tablet. - Medication Reconciliation Form, Thank You Letter, Antibiotic Education, Prescription Opioid Use form. - Follow up: Private Physician; When: 2 - 3 days; Reason: Recheck today's complaints, Continuance of care, Re-evaluation by your physician. Follow up: Ian Lezama; When: 1 - 2 days; Reason: Recheck today's complaints, Re-evaluation by your physician. - Problem is new. - Symptoms have improved. Signatures: Dispatcher [employer] [facility] Tanmay Marshall MD MD cha Calderon, Audri, RN RN aa5 Fawn Jessica RN RN jl7 Corrections: (The following items were deleted from the chart) 15:10 14:22 Head C Spine CAP W Con+CT.RAD.BRZ ordered. [facility] 17:06 16:02 06/17/2020 16:02 Discharged to Home. Impression: Unspecified open wound of right jl7 hand; Abrasion of right forearm; Abrasion, left knee; Abrasion, right knee; Superficial injury of head; Strain of muscle, fascia and tendon at neck level; Fall due to bumping against object; Pain in right wrist. Condition is Stable. Discharge Instructions: Head Injury, Adult, Muscle Strain, Skin Tear Care, Deep Skin Avulsion, Cervical Sprain, Iwtm-ry-Dklh, Skin Tear Care, Jzwn-on-Fokh, Head Injury, Adult, Kfgl-iu-Zlth. Prescriptions for Bactroban 2 % Topical Ointment - Apply to affected area 1 application by TOPICAL route every 12 hours; 45 gram, Tylenol 325 mg Oral Tablet - take 2 tablets by ORAL route every 6 hours as needed; 30 bottle. and Forms are Medication Reconciliation Form, Thank You Letter, Antibiotic Education, Prescription Opioid Use. Follow up: Private Physician; When: 2 - 3 days; Reason: Recheck today's complaints, Continuance of care, Re-evaluation by your physician. Follow up: Ian Lezama; When: 1 - 2 days; Reason: Recheck today's complaints, Re-evaluation by your physician. Problem is new. Symptoms have improved. black
[2020-06-17] MEDS ORDERED: TRAMADOL HCL 50 MG TAB ONE (16:51)
[2020-06-17 17:14] VITALS: TEMP 97.9
[2020-06-17 17:15] VITALS: O2SAT 97
[2020-06-17 17:16] VITALS: BP 182/79
== END 2020-06-17 17:06 | disposition home or self-care (01) ==
LOC: ER 12:39
DX: S61.401A Unspecified open wound of right hand, initial encounter (principal); S50.811A Abrasion of right forearm, initial encounter; S80.212A Abrasion, left knee, initial encounter; S80.211A Abrasion, right knee, initial encounter; S00.90XA Unspecified superficial injury of unspecified part of head, initial encounter; S16.1XXA Strain of muscle, fascia and tendon at neck level, initial encounter; M25.531 Pain in right wrist; E11.9 Type 2 diabetes mellitus without complications; I10 Essential (primary) hypertension; E07.9 Disorder of thyroid, unspecified; Z79.84 Long term (current) use of oral hypoglycemic drugs; V03.00XA Pedestrian on foot injured in collision with car, pick-up truck or van in nontraffic accident, initial encounter
CPT/HCPCS: 85025; 80048; 36415; 86900; 86850; 82565; 86901; 70450; 71250; 72125; 73110; J3010; J7030; 96361; 96374; 99284

== ENCOUNTER 2021-05-29 20:19 | Emergency (ER) | payer OTHER ==
--- NOTE | 2021-05-29 22:10 | RAD REPORT ---
EXAM DESCRIPTION: CT - [id number] - 05/29/2021 10:04 pm CLINICAL HISTORY: Trauma, head and neck injury. PAIN COMPARISON: Head C Spine Cap Wo Con dated 06/17/2020 TECHNIQUE: Axial 5 mm thick images of the head were obtained. Axial 2 mm thick images of the cervical spine were obtained with sagittal and coronal reconstruction images generated and reviewed. All CT scans are performed using dose optimization technique as appropriate and may include automated exposure control or mA/KV adjustment according to patient size. FINDINGS: CT HEAD WITHOUT CONTRAST: No acute hemorrhage, hydrocephalus or extra-axial collection is identified.Mild generalized brain atr ophy is present with mild periventricular and deep white matter chronic microvascular ischemic change s.No areas of brain edema or midline shift. The paranasal sinuses and mastoids are clear.The calvarium is intact. CT CERVICAL SPINE WITHOUT CONTRAST: No fracture or subluxation.Moderate lower cervical degenerative changes are present. Mild degenerativ e levoscoliosis.No prevertebral soft tissues swelling is identified. IMPRESSION: No acute intracranial or cervical spine findings.
--- NOTE | 2021-05-29 22:13 | RAD REPORT ---
EXAM DESCRIPTION: RAD - Knee Right 3 View - 05/29/2021 10:07 pm CLINICAL HISTORY: PAIN COMPARISON: Knee Right 3 View dated 07/19/2020 FINDINGS: Diffuse osteopenia is seen. Lucency is seen in the inferior patella with adjacent soft tis tara swelling compatible with fracture. IMPRESSION: Patella fracture.
--- NOTE | 2021-05-29 22:45 | EDPHYS ---
Physician Documentation [facility] Name: Salena Heath Age: 80 yrs Sex: Female : 1940 Arrival Date: 05/29/2021 Time: 20:23 Bed 19 Private MD: ED Physician Tanmay Marshall HPI: 05/29 22:29 This 80 yrs old Female presents to ER via Wheelchair with complaints of Fall Injury. jr8 22:29 Details of fall: The patient fell from an upright position, while standing. Onset: The jr8 symptoms/episode began/occurred acutely, today. Associated injuries: The patient sustained injury to the head, abrasion, hematoma, pain, neck injury, pain with movement, right leg, abrasion, ecchymosis, painful injury. Severity of symptoms: At their worst the symptoms were moderate, in the emergency department the symptoms are unchanged. The patient has not experienced similar symptoms in the past. The patient has not recently seen a physician. This is a 80-year-old female patient that presented emergency room after sustaining an accidental fall while walking outside. Stated that she hit the corner of a walkway and fell forward hitting the front of her head and right knee. Denies loss of consciousness. Patient stated that she does have mild frontal head pain from the impact along with neck pain with motion and right knee pain. Patient has been ambulatory post fall. Historical: - Allergies: 21:25 Codeine; lg3 21:25 Demerol; lg3 21:25 Iodine; lg3 - Home Meds: 21:25 Actos 15 mg Oral tab 1 tab once daily [Active]; carvedilol 25 mg Oral tab 1 tab every lg3 12 hours [Active]; Flexeril 10 mg Oral tab nightly [Active]; Januvia 15 mg Oral once daily [Active]; levothyroxine 75 mcg tab 1 tab once daily [Active]; Lexapro 10 mg Oral tab 1 tab once daily [Active]; Norvasc 2.5 mg Oral tab 1 tab once daily [Active]; glimepiride 4 mg Oral tab twice a day [Active]; - PMHx: 21:25 Diabetes - NIDDM; Hypertension; Thyroid problem; lg3 - PSHx: 21:25 left knee replacment; hysterectomy; Cholecystectomy; lg3 - Immunization history:: Client reports receiving the 2nd dose of the Covid vaccine, pfizer X2. - Immunization history: Last tetanus immunization: < 5 years ago. - Social history:: Smoking status: Patient denies any tobacco usage or history of. Patient/guardian denies using alcohol. ROS: 22:33 Eyes: Negative for injury, pain, redness, and discharge, ENT: Negative for injury, jr8 pain, and discharge, Cardiovascular: Negative for chest pain, palpitations, and edema, Respiratory: Negative for shortness of breath, cough, wheezing, and pleuritic chest pain, Abdomen/GI: Negative for abdominal pain, nausea, vomiting, diarrhea, and constipation, Back: Negative for injury and pain, Neuro: Negative for headache, weakness, numbness, tingling, and seizure. 22:33 Neck: Positive for pain with movement, pain at rest, Negative for tenderness, bony tenderness. 22:33 MS/extremity: Positive for abrasion, ecchymosis, pain, tenderness, of the right knee. 22:33 Skin: Positive for abrasion(s), ecchymosis, of the forehead. Exam: 22:33 Eyes: Pupils equal round and reactive to light, extra-ocular motions intact. Lids and jr8 lashes normal. Conjunctiva and sclera are non-icteric and not injected. Cornea within normal limits. Periorbital areas with no swelling, redness, or edema. ENT: Nares patent. No nasal discharge, no septal abnormalities noted. Tympanic membranes are normal and external auditory canals are clear. Oropharynx with no redness, swelling, or masses, exudates, or evidence of obstruction, uvula midline. Mucous membranes moist. Neck: Trachea midline, no thyromegaly or masses palpated, and no cervical lymphadenopathy. Supple, full range of motion without nuchal rigidity, or vertebral point tenderness. No Meningismus. Mild pain with motion Cardiovascular: Regular rate and rhythm with a normal S1 and S2. No gallops, murmurs, or rubs. Normal PMI, no JVD. No pulse deficits. Respiratory: Lungs have equal breath sounds bilaterally, clear to auscultation and percussion. No rales, rhonchi or wheezes noted. No increased work of breathing, no retractions or nasal flaring. Abdomen/GI: Soft, non-tender, with normal bowel sounds. No distension or tympany. No guarding or rebound. No evidence of tenderness throughout. Back: No spinal tenderness. No costovertebral tenderness. Full range of motion. Skin: Warm, dry with normal turgor. Normal color with no rashes, no lesions, and no evidence of cellulitis. Neuro: Awake and alert, GCS 15, oriented to person, place, time, and situation. Cranial nerves II-XII grossly intact. Motor strength 5/5 in all extremities. Sensory grossly intact. Cerebellar exam normal. Normal gait. 22:33 Head/face: Noted is abrasion(s), that are mild, of the forehead, ecchymosis, that is mild, of the forehead. 22:33 Musculoskeletal/extremity: Extremities: grossly normal except: noted in the right leg: abrasion, ecchymosis, pain, tenderness, over the patella , ROM: intact in all extremities, full active range of motion, full passive range of motion, limited active range of motion due to pain, in the right leg, limited passive range of motion due to pain, in the right leg, Circulation is intact in all extremities. Sensation intact. Vital Signs: 21:25 BP 166 / 78; Pulse 67; Resp 17 S; Temp 97.0; Pulse Ox 98% on R/A; Weight 74.39 kg (R); lg3 Height 5 ft. 2 in. (157.48 cm) (R); Pain 7/10; 21:25 Body Mass Index 30.00 (74.39 kg, 157.48 cm) lg3 Alicia Coma Score: 21:25 Eye Response: spontaneous(4). Verbal Response: oriented(5). Motor Response: obeys lg3 commands(6). Total: 15. Trauma Score (Adult): 21:25 Eye Response: spontaneous(1); Verbal Response: oriented(1); Motor Response: obeys lg3 commands(2); Systolic BP: > 89 mm Hg(4); Respiratory Rate: 10 to 29 per min(4); Alicia Score: 15; Trauma Score: 12 MDM: 21:33 Patient medically screened. [facility] 22:33 Data reviewed: vital signs, nurses notes, radiologic studies, CT scan, plain films. jr8 Data interpreted: Pulse oximetry: on room air is 98 %. Interpretation: normal. Counseling: I had a detailed discussion with the patient and/or guardian regarding: the historical points, exam findings, and any diagnostic results supporting the discharge/admit diagnosis, radiology results, the need for outpatient follow up, a orthopedic surgeon, to return to the emergency department if symptoms worsen or persist or if there are any questions or concerns that arise at home. 05/29 21:46 Order name: CT Head C Spine; Complete Time: 22:28 jr8 05/29 21:46 Order name: XRAY Knee RIGHT 3 view; Complete Time: 22: jr8 Administered Medications: No medications were administered Disposition Summary: 05/29/21 22:44 Discharge Ordered Location: Home jr8 Problem: new jr8 Symptoms: have improved jr8 Condition: Stable jr8 Diagnosis - Fracture of patella jr8 - Unspecified superficial injury of other part of head, initial encounter jr8 Followup: jr8 - With: Giovanny Hunt MD - When: 5 - 6 days - Reason: Recheck today's complaints, Continuance of care, Re-evaluation by your physician Followup: jr8 - With: Jessica Garner MD - When: 2 - 3 days - Reason: Recheck today's complaints, Continuance of care, Re-evaluation by your physician Discharge Instructions: - Discharge Summary Sheet jr8 - Head Injury, Adult jr8 - Patellar Fracture, Adult jr8 Forms: - Medication Reconciliation Form jr8 - Thank You Letter jr8 - Antibiotic Education jr8 - Prescription Opioid Use jr8 Addendum: 05/31/2021 06:38 Co-signature as Attending Physician, Jessica Garner MD I agree with the assessment and plan of c jenkins care. Signatures: Dispatcher [employer] Tanmay Russell MD MD cha Roszak, Josh, PA PA jr8 Alesia Yarbrough, RN RN lg3
--- NOTE | 2021-05-29 22:45 | ER ---
Nurse's Notes [facility] Name: Salena Heath Age: 80 yrs Sex: Female : 1940 Arrival Date: 05/29/2021 Time: 20:23 Bed 19 Private MD: Diagnosis: Fracture of patella;Unspecified superficial injury of other part of head, initial encounter Presentation: 05/29 21:20 Chief complaint: Patient states: walking into threshold of front door. tripped on step. lg3 confirms hitting head on concrete porch. abrasions noted to right knee and nose. complains of pain in right knee, right wrist and headache. Care prior to arrival: None. Mechanism of Injury: Fall. Trauma event details: Injury occurred in the [facility]. 21:20 Acuity: LUZ 3 lg3 21:20 Method Of Arrival: Wheelchair lg3 21:30 Coronavirus screen: Client denies travel out of the [place] in the last 14 days. At this lg3 time, the client does not indicate any symptoms associated with coronavirus-19. Ebola Screen: No symptoms or risks identified at this time. Initial Sepsis Screen: Does the patient meet any 2 criteria? No. Patient's initial sepsis screen is negative. Does the patient have a suspected source of infection? No. Patient's initial sepsis screen is negative. Risk Assessment: Do you want to hurt yourself or someone else? Patient reports no desire to harm self or others. Onset of symptoms was May 29, 2021. Trauma Activation: Not Applicable Physician: ED Physician; Name: ; Notified At: ; Arrived At: Physician: General Surgeon; Name: ; Notified At: ; Arrived At: Physician: Radiology; Name: ; Notified At: ; Arrived At: Physician: Respiratory; Name: ; Notified At: ; Arrived At: Physician: Lab; Name: ; Notified At: ; Arrived At: Historical: - Allergies: 21:25 Codeine; lg3 21:25 Demerol; lg3 21:25 Iodine; lg3 - Home Meds: 21:25 Actos 15 mg Oral tab 1 tab once daily [Active]; carvedilol 25 mg Oral tab 1 tab every lg3 12 hours [Active]; Flexeril 10 mg Oral tab nightly [Active]; Januvia 15 mg Oral once daily [Active]; levothyroxine 75 mcg tab 1 tab once daily [Active]; Lexapro 10 mg Oral tab 1 tab once daily [Active]; Norvasc 2.5 mg Oral tab 1 tab once daily [Active]; glimepiride 4 mg Oral tab twice a day [Active]; - PMHx: 21:25 Diabetes - NIDDM; Hypertension; Thyroid problem; lg3 - PSHx: 21:25 left knee replacment; hysterectomy; Cholecystectomy; lg3 - Immunization history:: Client reports receiving the 2nd dose of the Covid vaccine, pfizer X2. - Immunization history: Last tetanus immunization: < 5 years ago. - Social history:: Smoking status: Patient denies any tobacco usage or history of. Patient/guardian denies using alcohol. Screenin:25 Abuse screen: Denies threats or abuse. Denies injuries from another. Tuberculosis lg3 screening: No symptoms or risk factors identified. 21:30 Nutritional screening: No deficits noted. Fall Risk Fall in past 12 months (25 points). lg3 Primary Survey: 21:25 NO uncontrolled hemorrhage observed. A: The patient is alert. Airway: patent. lg3 Breathing/Chest: Respiratory pattern: regular, Respiratory effort: spontaneous, unlabored. Circulation: Skin color: pink. Disability Alert. Exposure/Environment: There is no evidence of uncontrolled external bleeding. A warming method has been applied: A warm blanket has been provided to the patient. 23:17 Reassessment Breathing/Chest Respiratory pattern Regular Respiratory effort Spontaneous kd3 Unlabored. Assessment: 21:20 General: Appears in no apparent distress. uncomfortable, Behavior is calm, cooperative. lg3 Pain: Complains of pain in right knee, right wrist, headache. Neuro: No deficits noted. Level of Consciousness is awake, alert, obeys commands, Oriented to person, place, time, situation, Speech is normal. EENT: No deficits noted. No signs and/or symptoms were reported regarding the EENT system. Cardiovascular: No deficits noted. Capillary refill < 3 seconds JVD is absent Patient's skin is warm and dry. Respiratory: No deficits noted. Denies shortness of breath. GI: No deficits noted. No signs and/or symptoms were reported involving the gastrointestinal system. Abdomen is round non-distended. : No deficits noted. No signs and/or symptoms were reported regarding the genitourinary system. Derm: Skin is intact, is thin, Skin is dry, Wound noted right knee, bridge of nose. Musculoskeletal: No deficits noted. Circulation, motion, and sensation intact. Capillary refill < 3 seconds, Range of motion: intact in all extremities. Vital Signs: 21:25 BP 166 / 78; Pulse 67; Resp 17 S; Temp 97.0; Pulse Ox 98% on R/A; Weight 74.39 kg (R); lg3 Height 5 ft. 2 in. (157.48 cm) (R); Pain 7/10; 21:25 Body Mass Index 30.00 (74.39 kg, 157.48 cm) lg3 Alicia Coma Score: 21:25 Eye Response: spontaneous(4). Verbal Response: oriented(5). Motor Response: obeys lg3 commands(6). Total: 15. Trauma Score (Adult): 21:25 Eye Response: spontaneous(1); Verbal Response: oriented(1); Motor Response: obeys lg3 commands(2); Systolic BP: > 89 mm Hg(4); Respiratory Rate: 10 to 29 per min(4); Laicia Score: 15; Trauma Score: 12 ED Course: 20:23 Patient arrived in ED. ag3 21:23 Triage completed. lg3 21:30 Arm band placed on left wrist. lg3 21:33 Rohan Kelsey PA is PHCP. jr8 21:33 Tanmay Marshall MD is Attending Physician. jr8 22:06 CT Head C Spine In Process Unspecified. EDMS 22:09 XRAY Knee RIGHT 3 view In Process Unspecified. EDMS 22:37 Anjelica Peraza, AVILA is Primary Nurse. kd3 22:43 Giovanny Hunt MD is Referral Physician. jr8 22:44 Jessica Garner MD is Referral Physician. jr8 23:16 No provider procedures requiring assistance completed. Patient did not have IV access kd3 during this emergency room visit. 23:17 Patient has correct armband on for positive identification. kd3 23:17 Patient maintains SpO2 saturation greater than 95% on room air. kd3 23:17 Thermoregulation: warm blanket given to patient. kd3 Administered Medications: No medications were administered Outcome: :44 Discharge ordered by . jr8 23:16 Discharged to home via wheelchair. kd3 23:16 Condition: stable 23:16 Discharge instructions given to patient, family, Instructed on discharge instructions, follow up and referral plans. Demonstrated understanding of instructions, follow-up care. 23:17 Patient left the ED. kd3 Signatures: Dispatcher [employer] EDRohan Montenegro PA PA jr8 Dora Abebe3 Alesia Yarbrough, AVILA RN lg3 Anjelica Peraza RN RN kd3
[2021-05-30 00:37] VITALS: BP 166/78; TEMP 97; O2SAT 98
== END 2021-05-29 23:17 | disposition home or self-care (01) ==
LOC: ER 20:19
DX: S82.001A Unspecified fracture of right patella, initial encounter for closed fracture (principal); S00.80XA Unspecified superficial injury of other part of head, initial encounter; W19.XXXA Unspecified fall, initial encounter; Y93.01 Activity, walking, marching and hiking; Y92.89 Other specified places as the place of occurrence of the external cause; Z88.5 Allergy status to narcotic agent; Z91.048 Other nonmedicinal substance allergy status; E11.9 Type 2 diabetes mellitus without complications; I10 Essential (primary) hypertension
CPT/HCPCS: 70450; 72125; 99284

== ENCOUNTER 2021-12-23 21:31 | Emergency (ER) | payer OTHER ==
--- NOTE | 2021-12-23 23:00 | RAD REPORT ---
EXAM DESCRIPTION: RAD - Chest Single View - 12/23/2021 10:53 pm CLINICAL HISTORY: Cough COMPARISON: 04/19/2019 FINDINGS: Lines: None. Lungs: No evidence of edema or pneumonia. Underpenetration limits evaluation of the left lung base. Pleural: No significant pleural effusions or pneumothorax. Cardiac: The heart size is within normal limits. Mediastinum: Within normal limits. Bones: No acute fractures. Other: None IMPRESSION: No acute cardiopulmonary disease.
[2021-12-23] MEDS ORDERED: NA CHLORIDE 0.9% 500 ML ONE (23:33)
[2021-12-23] MEDS ORDERED: NA CHLORIDE 0.9% 1,000 ML ONE (23:33)
[2021-12-23] MEDS ORDERED: CEFTRIAXONE 1000 MG/VIAL ONE (23:33)
[2021-12-23 23:39] LABS: Absolute Lymphocytes (CBC) 1.2 K/uL (0.7-4.9); Hematocrit 36.2 % (36.0-45.0); Lymphocytes % 18.7 % (15.3-44.8); MCV 92.6 fL (80-100); RBC Red Blood Cell Count 3.91 M/uL (3.86-4.86)
[2021-12-23 23:44] LABS: Protime INR 1.1
[2021-12-24 00:03] LABS: Albumin 3.4 g/dL (3.4-5.0); Bilirubin Direct 0.2 mg/dL (0-0.2); Bilirubin Total 0.7 mg/dL (0.2-1.0); Potassium 3.3 mmol/L (3.5-5.1); Protein, Total 7.2 g/dL (6.4-8.2); Troponin High Sensitivity 8.7 pg/mL (<58.9)
[2021-12-24 00:04] LABS: Magnesium 1.1 mg/dL (1.8-2.4)
[2021-12-24 00:51] LABS: Urine Blood Negative (Negative); Urine Glucose Negative (Negative); Urine Protein Negative (Negative)
[2021-12-24 00:59] LABS: Urine Bacteria 20-50 /HPF (<20); Urine RBC <5 /HPF (None Seen)
--- NOTE | 2021-12-24 01:05 | ER ---
Nurse's Notes [facility] Name: Salena Heath Age: 81 yrs Sex: Female : 1940 Arrival Date: 12/23/2021 Time: 21:36 Bed 2 Private MD: Diagnosis: Acute upper respiratory infection, unspecified;Fever, unspecified;Hypokalemia;Hypomagnesemia;Cough;Essential (primary) hypertension;UTI/ Urinary tract infection, site not specified Presentation: 12/23 21:50 Chief complaint: Patient states: "My whole body just hurts so bad, all over. My fever tw5 just wont go down even after I took some Tylenol. I took Tylenol about an hour ago.". Coronavirus screen: Vaccine status: Patient reports receiving the 2nd dose of the covid vaccine. Moderna. Ebola Screen: Patient negative for fever greater than or equal to 101.5 degrees Fahrenheit, and additional compatible Ebola Virus Disease symptoms Patient denies exposure to infectious person. Patient denies travel to an Ebola-affected area in the 21 days before illness onset. Initial Sepsis Screen: Does the patient meet any 2 criteria? No. Patient's initial sepsis screen is negative. Does the patient have a suspected source of infection? No. Patient's initial sepsis screen is negative. Risk Assessment: Do you want to hurt yourself or someone else? Patient reports no desire to harm self or others. Onset of symptoms was December 21, 2021. 21:50 Method Of Arrival: Wheelchair tw5 21:50 Acuity: LUZ 3 tw5 Triage Assessment: 21:52 General: Appears in no apparent distress. Behavior is calm, cooperative, appropriate tw5 for age. Pain: Pain currently is 5 out of 10 on a pain scale. Pain began 2-3 days ago. Also complains of. Neuro: Level of Consciousness is awake, alert, obeys commands, Oriented to person, place, time, situation. 12/24 04:46 Headache History: Denies prior headaches. aa9 Historical: - Allergies: 12/23 21:52 Codeine; tw5 21:52 Demerol; tw5 21:52 Iodine; tw5 - PMHx: 21:52 Diabetes - NIDDM; Hypertension; Thyroid problem; Alzheimer's disease; tw5 - PSHx: 21:52 Cholecystectomy; hysterectomy; Left Knee Replacment; tw5 - Immunization history:: Flu vaccine is not up to date. - Social history:: Smoking status: Patient denies any tobacco usage or history of. Screenin/24 03:48 Abuse screen: Denies threats or abuse. Denies injuries from another. Nutritional aa9 screening: No deficits noted. Tuberculosis screening: No symptoms or risk factors identified. Fall Risk None identified. Assessment: 12/23 23:36 General: Appears comfortable, Behavior is calm, cooperative, appropriate for age. Pain: aa9 Complains of pain in right leg, lateral aspect of left calf, left lateral ankle, lateral aspect of left foot, left calf, left Achilles, left heel, medial aspect of left calf, left medial ankle, medial aspect of left foot, left griffin, anterior aspect of left ankle and dorsum of left foot Aggravated by increased activity. Neuro: Level of Consciousness is awake, alert, obeys commands, Oriented to person, place, time, situation. Cardiovascular: Patient's skin is warm and dry. Respiratory: Airway is patent Respiratory effort is even, unlabored. GI: No signs and/or symptoms were reported involving the gastrointestinal system. : No signs and/or symptoms were reported regarding the genitourinary system. EENT: No signs and/or symptoms were reported regarding the EENT system. Derm: Skin with poor turgor. 12/24 00:00 Reassessment: Patient appears in no apparent distress at this time. pt low garcia's in aa9 bed, family at bedside. 00:00 General: Appears comfortable, Behavior is calm, cooperative, appropriate for age. Pain: aa9 Denies pain. Neuro: Level of Consciousness is awake, alert, obeys commands, Oriented to person, place, time, situation. Cardiovascular: Cardiovascular: Patient's skin is warm and dry. Respiratory: Airway is patent Respiratory effort is even, unlabored. GI: No deficits noted. No signs and/or symptoms were reported involving the gastrointestinal system. 02:21 General: discharge pending iv infusion completion. aa9 03:50 Reassessment: Patient appears in no apparent distress at this time. Patient and/or aa9 family updated on plan of care and expected duration. Pain level reassessed. Patient is alert, oriented x 3, equal unlabored respirations, skin warm/dry/pink. family at bedside. Vital Signs: 12/23 21:50 BP 181 / 103; Pulse 85; Resp 18; Temp 98.5(O); Pulse Ox 95% on R/A; Weight 68.04 kg; tw5 Height 5 ft. 3 in. (160.02 cm); Pain 5/10; 22:00 BP 175 / 80; Pulse 82; Resp 16 S; Pulse Ox 98% on R/A; aa9 23:00 BP 142 / 88; Pulse 81; Resp 17 S; Pulse Ox 95% on R/A; aa9 12/24 00:00 BP 148 / 78; Pulse 77; Resp 16 S; Pulse Ox 96% on R/A; aa9 04:36 BP 132 / 85; Pulse 73; Resp 16 S; Pulse Ox 99% on R/A; aa9 12/23 21:50 Body Mass Index 26.57 (68.04 kg, 160.02 cm) tw5 ED Course: 12/23 21:36 Patient arrived in ED. ja2 21:52 Triage completed. tw5 21:52 Arm band placed on right wrist. Patient placed in an exam room, on a stretcher, on tw5 rn cardiac, on pulse oximetry. 22:12 Tanmay Marshall MD is Attending Physician. [facility] 22:53 XRAY Chest (1 view) In Process Unspecified. EDMS 23:15 Inserted saline lock: 20 gauge in left antecubital area, using aseptic technique. Blood aa9 collected. 23:26 Basic Metabolic Panel Sent. aa9 23:26 CBC with Diff Sent. aa9 23:26 LFT's Sent. aa9 23:26 Magnesium Sent. aa9 23:26 NT PRO-BNP Sent. aa9 23:26 PT-INR Sent. aa9 23:26 Troponin HS Sent. aa9 23:27 Lactate Sent. aa9 23:27 Blood Culture Adult (2) Sent. aa9 23:27 Lipase Sent. aa9 23:27 Flu Sent. aa9 23:27 SARS-COV-2 RT PCR (Document "Date of Onset" if Symptomatic) Sent. aa9 23:32 Teri Bernal, AVILA is Primary Nurse. aa9 12/24 00:00 Patient has correct armband on for positive identification. Placed in gown. Bed in low aa9 position. Side rails up X2. Adult w/ patient. 00:02 Notified ED physician of a critical lab result(s). mag. tw5 01:04 Carlos Garner MD is Referral Physician. [facility] 04:45 No provider procedures requiring assistance completed. IV discontinued, intact, aa9 bleeding controlled, No redness/swelling at site. Pressure dressing applied. Administered Medications: 12/23 23:42 Drug: NS 0.9% 500 ml Route: IV; Rate: bolus; Site: left antecubital; aa9 12/24 02:59 Follow up: Response: No adverse reaction; IV Status: Completed infusion; IV Intake: aa9 500ml 12/23 23:43 Drug: NS 0.9% 1000 ml Route: IV; Rate: 125 ml/hr; Site: left antecubital; aa9 12/24 04:45 Follow up: Response: No adverse reaction; IV Status: Completed infusion; IV Intake: aa9 700ml 12/23 23:43 Drug: Rocephin (cefTRIAXone) 1 grams Route: IV; Rate: per protocol; Site: left aa antecubital; 12/24 03:13 Follow up: Response: No adverse reaction; IV Status: Completed infusion; IV Intake: [id number] 02:14 Drug: Magnesium Sulfate 2 grams Route: IVPB; Infused Over: 2 hrs; Site: left aa9 antecubital; 03:13 Follow up: Response: No adverse reaction; IV Status: Completed infusion; IV Intake: aa9 100ml 03:14 Drug: Potassium Effervescent Tablet 50 mEq Route: PO; aa9 04:06 Follow up: Response: No adverse reaction aa9 04:06 Not Given (Physician Discretion): cefPODOXime 200 mg PO once aa9 04:45 Drug: Rocephin (cefTRIAXone) 1 grams Route: IV; Rate: calculated rate; Site: left aa9 antecubital; 04:45 Follow up: Response: No adverse reaction; IV Status: Completed infusion; IV Intake: 39sqre2 Medication: 04:46 VIS not applicable for this client. aa9 Intake: 02:59 IV: 500ml; Total: 500ml. aa9 03:13 IV: 100ml; Total: 600ml. aa9 03:13 IV: 10ml; Total: 610ml. aa9 04:45 IV: 10ml; Total: 620ml. aa9 04:45 IV: 700ml; Total: 1320ml. aa9 Outcome: 01:04 Discharge ordered by . black 04:46 Discharged to home via wheelchair, with family. aa9 04:46 Condition: stable 04:46 Discharge instructions given to patient, family. 04:47 Patient left the ED. aa9 Signatures: Dispatcher [employer] EDKY Tanmay Marshall MD MD cha Alexander, Saira 2 Amanda Cannon tw5 Teri Bernal RN RN aa9 Corrections: (The following items were deleted from the chart) 00:02 00:01 Pain: Complains of pain in right leg, lateral aspect of left calf, left lateral aa9 ankle, lateral aspect of left foot, left calf, left Achilles, left heel, medial aspect of left calf, left medial ankle, medial aspect of left foot, left griffin, anterior aspect of left ankle and dorsum of left foot Aggravated by increased activity, aa9 00:02 00:01 Neuro: Level of Consciousness is awake, alert, obeys commands, Oriented to time, aa9 situation, aa9 : 00:01 General: Appears comfortable, Behavior is calm, cooperative, appropriate for age, aa9 aa9 : 00:01 Cardiovascular: Patient's skin is warm and dry. aa9 aa9 :02 00:01 Respiratory: Airway is patent Respiratory effort is even, unlabored, aa9 aa9 : 00:01 GI: No signs and/or symptoms were reported involving the gastrointestinal system. aa9 aa9 :02 00:01 : No signs and/or symptoms were reported regarding the genitourinary system. aa9aa9 : 00:01 EENT: No signs and/or symptoms were reported regarding the EENT system. aa9 aa9 : 00:01 Derm: Skin with poor turgor aa9 aa9 03:50 12/23 23:36 Neuro: Level of Consciousness is awake, alert, obeys commands, Oriented to aa9 time, situation, aa9
--- NOTE | 2021-12-24 01:05 | EDPHYS ---
Physician Documentation [facility] Name: Salena Heath Age: 81 yrs Sex: Female : 1940 Arrival Date: 12/23/2021 Time: 21:36 Bed 2 Private MD: ED Physician Tanmay Marshall HPI: 12/23 23:41 This 81 yrs old Female presents to ER via Wheelchair with complaints of black Fever, Pain All Over, Headache, Cough, Weakness. 23:41 This 81 yrs old Female presents to ER via Wheelchair with complaints of black Fever, Pain All Over, Headache, Cough, Weakness. 23:41 The patient reports fever, that was measured at 101 degrees Fahrenheit. Onset: The black symptoms/episode began/occurred 3 day(s) ago. Modifying factors: there are no obvious modifying factors. Associated signs and symptoms: Pertinent positives: chills, cough, runny nose, sinus congestion, sinus drainage. Severity of symptoms: At their worst the symptoms were mild in the emergency department the symptoms are unchanged. The patient has experienced similar episodes in the past, a few times. Historical: - Allergies: 21:52 Codeine; tw5 21:52 Demerol; tw5 21:52 Iodine; tw5 - PMHx: 21:52 Diabetes - NIDDM; Hypertension; Thyroid problem; Alzheimer's disease; tw5 - PSHx: 21:52 Cholecystectomy; hysterectomy; Left Knee Replacment; tw5 - Immunization history:: Flu vaccine is not up to date. - Social history:: Smoking status: Patient denies any tobacco usage or history of. ROS: 23:42 Constitutional: Negative for fever, chills, and weight loss, Eyes: Negative for injury, black pain, redness, and discharge, ENT: Negative for injury, pain, and discharge, Neck: Negative for injury, pain, and swelling, Cardiovascular: Negative for chest pain, palpitations, and edema, Abdomen/GI: Negative for abdominal pain, nausea, vomiting, diarrhea, and constipation, Back: Negative for injury and pain, : Negative for injury, bleeding, discharge, and swelling, MS/Extremity: Negative for injury and deformity, Skin: Negative for injury, rash, and discoloration, Neuro: Negative for headache, weakness, numbness, tingling, and seizure, Psych: Negative for depression, anxiety, suicide ideation, homicidal ideation, and hallucinations, Allergy/Immunology: Negative for hives, rash, and allergies, Endocrine: Negative for neck swelling, polydipsia, polyuria, polyphagia, and marked weight changes, Hematologic/Lymphatic: Negative for swollen nodes, abnormal bleeding, and unusual bruising. 23:42 Respiratory: Positive for cough, "sounds productive". Exam: 23:42 Head/Face: Normocephalic, atraumatic. Eyes: Pupils equal round and reactive to light, black extra-ocular motions intact. Lids and lashes normal. Conjunctiva and sclera are non-icteric and not injected. Cornea within normal limits. Periorbital areas with no swelling, redness, or edema. ENT: Nares patent. No nasal discharge, no septal abnormalities noted. Tympanic membranes are normal and external auditory canals are clear. Oropharynx with no redness, swelling, or masses, exudates, or evidence of obstruction, uvula midline. Mucous membranes moist. Neck: Trachea midline, no thyromegaly or masses palpated, and no cervical lymphadenopathy. Supple, full range of motion without nuchal rigidity, or vertebral point tenderness. No Meningismus. Chest/axilla: Normal chest wall appearance and motion. Nontender with no deformity. No lesions are appreciated. Cardiovascular: Regular rate and rhythm with a normal S1 and S2. No gallops, murmurs, or rubs. Normal PMI, no JVD. No pulse deficits. Abdomen/GI: Soft, non-tender, with normal bowel sounds. No distension or tympany. No guarding or rebound. No evidence of tenderness throughout. Back: No spinal tenderness. No costovertebral tenderness. Full range of motion. Female : Normal external genitalia. Skin: Warm, dry with normal turgor. Normal color with no rashes, no lesions, and no evidence of cellulitis. 23:42 Cardiovascular: Rate: normal, actual rate is 85 bpm, Rhythm: regular, Pulses: Pulses are 4+ in bilateral radial, brachial, femoral, popliteal, posterior tibial and and dorsalis pedis arteries.. Heart sounds: normal, Edema: is not appreciated, JVD: is not appreciated. 23:42 Respiratory: the patient does not display signs of respiratory distress, Respirations: normal, Breath sounds: are clear throughout, rhonchi, that are mild, are scattered, stridor, is not appreciated, + upper airway congestion. Respiratory rate: 85 12/24 00:44 ECG was reviewed by the Attending Physician. black 00:45 Musculoskeletal/extremity: DVT Exam: No signs of deep vein thrombosis. no pain, no black swelling, no tenderness, negative Homans' sign noted on exam, no appreciated bluish discoloration, no erythema, no increased warmth. Vital Signs: 12/23 21:50 BP 181 / 103; Pulse 85; Resp 18; Temp 98.5(O); Pulse Ox 95% on R/A; Weight 68.04 kg; tw5 Height 5 ft. 3 in. (160.02 cm); Pain 5/10; 22:00 BP 175 / 80; Pulse 82; Resp 16 S; Pulse Ox 98% on R/A; aa9 23:00 BP 142 / 88; Pulse 81; Resp 17 S; Pulse Ox 95% on R/A; aa9 12/24 00:00 BP 148 / 78; Pulse 77; Resp 16 S; Pulse Ox 96% on R/A; aa9 04:36 BP 132 / 85; Pulse 73; Resp 16 S; Pulse Ox 99% on R/A; aa9 12/23 21:50 Body Mass Index 26.57 (68.04 kg, 160.02 cm) tw5 MDM: 12/23 22:12 Patient medically screened. [facility] 23:50 Antibiotic administration: The patient is discharged and will get outpatient [facility] antibiotics, Zithromax. Differential diagnosis: bronchitis, flu, URI, viral Infection, bacterial infection, URI, bronchitis, pneumonia UTI. Differential Diagnosis: Bronchitis Influenza Upper Respiratory Infection Sinusitis Pharyngitis Viral Syndrome Pneumonia. Data reviewed: vital signs, nurses notes, lab test result(s), EKG, radiologic studies, plain films. Data interpreted: monitor car operator: rate is 85 beats/min, rhythm is regular, Pulse oximetry: on room air is 95 %. Test interpretation: by ED physician or midlevel provider: ECG, plain radiologic studies. Counseling: I had a detailed discussion with the patient and/or guardian regarding: the historical points, exam findings, and any diagnostic results supporting the discharge/admit diagnosis, lab results, radiology results. 12/23 22:15 Order name: Basic Metabolic Panel; Complete Time: 00:17 black 12/23 22:15 Order name: CBC with Diff; Complete Time: 00:17 [facility] 12/23 22:15 Order name: LFT's; Complete Time: 00:17 [facility] 12/23 22:15 Order name: Magnesium; Complete Time: 00:17 [facility] 12/23 22:15 Order name: NT PRO-BNP; Complete Time: 00:17 [facility] 12/23 22:15 Order name: PT-INR; Complete Time: 00:17 [facility] 12/23 22:15 Order name: Troponin HS; Complete Time: 00:17 [facility] 12/23 22:15 Order name: Lipase; Complete Time: 00:17 [facility] 12/23 22:15 Order name: Blood Culture Adult (2) [facility] 12/23 22:15 Order name: Lactate; Complete Time: 00:17 [facility] 12/23 22:15 Order name: Urine Microscopic Only [facility] 12/23 22:15 Order name: Flu; Complete Time: 00:17 [facility] 12/23 22:15 Order name: SARS-COV-2 RT PCR (Document "Date of Onset" if Symptomatic); Complete Time: [facility] 00:17 12/24 00:51 Order name: Urine Dipstick-Ancillary; Complete Time: 00:59 [facility] 12/23 22:15 Order name: XRAY Chest (1 view); Complete Time: 23:14 [facility] 12/23 22:15 Order name: EKG; Complete Time: 22:17 [facility] 12/23 22:15 Order name: Cardiac monitoring; Complete Time: 23:27 [facility] 12/23 22:15 Order name: EKG - Nurse/Tech; Complete Time: 00:08 [facility] 12/23 22:15 Order name: IV Saline Lock; Complete Time: 23:27 [facility] 12/23 22:15 Order name: Labs collected and sent; Complete Time: 23:27 [facility] 12/23 22:15 Order name: O2 Per Protocol; Complete Time: 23: [facility] 12/24 01:02 Order name: Urine Culture EDWA 12/23 22:15 Order name: O2 Sat Monitoring; Complete Time: 23:26 [facility] EC/24 00:44 Rate is 76 beats/min. Rhythm is regular. QRS [place] is Normal. NM interval is prolonged black at 268 msec. QRS interval is normal. QT interval is normal. No Q waves. T waves are Normal. No ST changes noted. Clinical impression: NSR w/ Non-specific ST/T Changes, 1st degree heart block, and No evidence of ischemia. Interpreted by me. Reviewed by me. Administered Medications: 12/23 23:42 Drug: NS 0.9% 500 ml Route: IV; Rate: bolus; Site: left antecubital; aa9 12/24 02:59 Follow up: Response: No adverse reaction; IV Status: Completed infusion; IV Intake: aa9 500ml 12/23 23:43 Drug: NS 0.9% 1000 ml Route: IV; Rate: 125 ml/hr; Site: left antecubital; aa9 12/24 04:45 Follow up: Response: No adverse reaction; IV Status: Completed infusion; IV Intake: aa9 700ml 12/23 23:43 Drug: Rocephin (cefTRIAXone) 1 grams Route: IV; Rate: per protocol; [address]; 12/24 03:13 Follow up: Response: No adverse reaction; IV Status: Completed infusion; IV Intake: [id number] 02:14 Drug: Magnesium Sulfate 2 grams Route: IVPB; Infused Over: 2 hrs; Site: left [facility] antecubital; 03:13 Follow up: Response: No adverse reaction; IV Status: Completed infusion; IV Intake: aa9 100ml 03:14 Drug: Potassium Effervescent Tablet 50 mEq Route: PO; aa9 04:06 Follow up: Response: No adverse reaction aa9 04:06 Not Given (Physician Discretion): cefPODOXime 200 mg PO once aa9 04:45 Drug: Rocephin (cefTRIAXone) 1 grams Route: IV; Rate: calculated rate; Site: left [address]; 04:45 Follow up: Response: No adverse reaction; IV Status: Completed infusion; IV Intake: [id number] Disposition Summary: 12/24/21 01:04 Discharge Ordered Location: Home black Problem: new black Symptoms: have improved black Condition: Stable black Diagnosis - Acute upper respiratory infection, unspecified black - Fever, unspecified black - Hypokalemia black - Hypomagnesemia black - Cough black - Essential (primary) hypertension black - UTI/ Urinary tract infection, site not specified black Followup: black - With: Private Physician - When: 2 - 3 days - Reason: Recheck today's complaints, Continuance of care, Re-evaluation by your physician Followup: black - With: - When: 2 - 3 days - Reason: Recheck today's complaints, Continuance of care, Re-evaluation by your physician Discharge Instructions: - Discharge Summary Sheet black - Potassium Content of Foods black - Hypomagnesemia black - Upper Respiratory Infection, Adult black - Cool Mist Vaporizer black - Hypertension, Adult black - Upper Respiratory Infection, Adult, [id number] black - Cough, Adult black - Hypokalemia black - Hypertension, Adult, Azyt-[id number]-[id number] black - How to Take Your Blood Pressure, [id number] black - Managing Your Hypertension black - Urinary Tract Infection, Adult, [id number] [facility] Forms: - Medication Reconciliation Form [facility] - Thank You Letter black - Antibiotic Education [facility] - Prescription Opioid Use [facility] Prescriptions: - Tessalon Perles 100 mg Oral Capsule - take 2 capsule by ORAL route every 8 hours As needed; 36 capsule; Refills: 0, [facility] Product Selection Permitted - Medrol (Abdelrahman) 4 mg Oral Tablets, Dose Pack - take 1 tablet by ORAL route as directed - follow package instructions; 1 [facility] packet; Refills: 0, Product Selection Permitted - Zithromax 500 mg Oral Tablet - take 1 tablet by ORAL route once daily for 5 days; 5 tablet; Refills: 0, [facility] Product Selection Permitted - cefpodoxime 200 mg Oral Tablet - take 1 tablet by ORAL route every 12 hours with food; 14 tablet; Refills: 0, [facility] Product Selection Permitted Signatures: Dispatcher [employer] Tanmay Russell MD MD cha Wood, Tiffany tw5 Teri Bernal, AVILA RN aa9 Annamaria Verdin PAFerdinand PAFerdinand sb4
[2021-12-24] MEDS ORDERED: AZITHROMYCIN 500 MG INJ IVPB ONE (02:04)
[2021-12-24] MEDS ORDERED: POTASSIUM 25 MEQ EFFERV TAB ONE (02:04)
[2021-12-24] MEDS ORDERED: Magnesium Sulfate 2gm IVPB 2 G/50 ML BAG IV ONE (02:04)
[2021-12-24] MEDS ORDERED: NA CHLORIDE 0.9% 250 ML ONE (02:04)
[2021-12-24] MEDS ORDERED: CEFTRIAXONE 1000 MG/VIAL ONE (03:57)
[2021-12-24 05:11] VITALS: TEMP 98.5
[2021-12-24 05:25] VITALS: BP 132/85; O2SAT 99
--- NOTE | 2021-12-24 18:37 | EKG ---
Test Date: 2021-12-23 Test Time: 23:48:20 Hazmat Truck Driver: SARITA MEASUREMENT RESULTS: Intervals: Rate: 76 FL: 268 QRSD: 110 QT: 422 QTc: 474 [place]: P: 70 FL: 268 QRS: 54 T: 44 INTERPRETIVE STATEMENTS: Sinus rhythm with 1st degree AV block Low voltage QRS Incomplete right bundle branch block Borderline ECG Compared to ECG 04/19/2019 08:11:58 No significant changes Electronically Signed On 12-24-21 18:35:56 CDT by Isaac Junior
== END 2021-12-24 04:47 | disposition home or self-care (01) ==
LOC: ER 21:31
DX: J06.9 Acute upper respiratory infection, unspecified (principal); E87.6 Hypokalemia; E83.42 Hypomagnesemia; N39.0 Urinary tract infection, site not specified; R05.9 Cough, unspecified; I10 Essential (primary) hypertension; Z20.822 Contact with and (suspected) exposure to COVID-19; Z88.5 Allergy status to narcotic agent; Z91.048 Other nonmedicinal substance allergy status
CPT/HCPCS: 96365; 96361; 93005; 87040 ×2; 87088; 85025; 87086; 80048; 36415; 83735; 85610; 80076; 83605; 84484; 83690; 83880; 87804 ×2; 71045; 99284; 96366; U0003; J0456; J3475; J7050; J7040; J7030; 81003; 81015

== ENCOUNTER 2023-12-12 01:42 | Emergency (ER) | payer OTHER, SELFPAY ==
[2023-12-12] MEDS ORDERED: ONDANSETRON 4 MG (ODT) TAB ONE (02:34)
[2023-12-12] MEDS ORDERED: HYDROCODONE/APAP 10/325 TAB ONE (02:34)
--- NOTE | 2023-12-12 04:19 | ER ---
Nurse's Notes [facility] Name: Salena Heath Age: 83 yrs Sex: Female : 1940 Arrival Date: 12/12/2023 Time: 01:42 Bed 8 Private MD: Diagnosis: Acute fall at home, acute left facial contusion, acute left hip contusion and pain, left hip and buttock contusion Presentation: 12/11 01:57 Chief complaint: Patient states: I FELL AND HIT MY HEAD. PAIN ON THE BACK OF HEAD AND ha1 LEFT HIP. NO LOC. Coronavirus screen: Vaccine status: Patient reports being unvaccinated. Ebola Screen: No symptoms or risks identified at this time. Initial Sepsis Screen: Does the patient meet any 2 criteria? No. Patient's initial sepsis screen is negative. Does the patient have a suspected source of infection? No. Patient's initial sepsis screen is negative. Risk Assessment: Do you want to hurt yourself or someone else? Patient reports no desire to harm self or others. Onset of symptoms was December 12, 2023. 01:57 Method Of Arrival: Wheelchair ha1 01:57 Acuity: LUZ 3 ha1 Triage Assessment: 01:57 General: Appears uncomfortable, Behavior is calm, cooperative. Pain: Complains of pain ha1 in BACK OF HEAD AND LEFT HIT Pain does not radiate. Pain currently is 8 out of 10 on a pain scale. Quality of pain is described as aching. Neuro: Level of Consciousness is awake, alert, obeys commands, Oriented to person, place, situation. Cardiovascular: Capillary refill < 3 seconds Patient's skin is warm and dry. Respiratory: Airway is patent Respiratory effort is even, unlabored, Respiratory pattern is regular, symmetrical. Derm: Skin is pink, warm \T\ dry. Historical: - Allergies: 04:53 Codeine; mt4 04:53 Demerol; mt4 04:53 Iodine; mt4 - Home Meds: 01:59 carvedilol 25 mg Oral tab 1 tab every 12 hours [Active]; levothyroxine 75 mcg tab 1 tab ha1 once daily [Active]; Lexapro 10 mg Oral tab 1 tab once daily [Active]; Flexeril 10 mg Oral tab nightly [Active]; - PMHx: 01:59 Alzheimer's disease; Diabetes - NIDDM; Hypertension; Thyroid problem; ha1 - PSHx: 01:59 Cholecystectomy; hysterectomy; Left Knee Replacment; ha1 - Immunization history:: Adult Immunizations up to date. - Infectious Disease History:: Denies. - Social history:: Smoking status: Patient denies any tobacco usage or history of. - Family history:: not pertinent. Screenin:57 [facility] ED Fall Risk Assessment (Adult) History of falling in the last 3 months, ha1 including since admission Yes- single mechanical fall (1 pt) Confusion or Disorientation Yes (5 pts) Intoxicated or Sedated No (0 pts) Impaired Gait No (0 pts) Mobility Assist Device Used Yes (1 pt) Altered Elimination Yes (1 pt) Score/Fall Risk Level 3 or more points = High Risk Oriented to surroundings, Maintained a safe environment, Educated pt \T\ family on fall prevention, incl call for assistance when getting out of bed, Hourly rounding (assess needs \T\ fall precautionary measures) done, Used ambulatory aids as needed (educated on \T\ assisted with). Abuse screen: Denies threats or abuse. Denies injuries from another. Nutritional screening: No deficits noted. Tuberculosis screening: No symptoms or risk factors identified. 02:07 Exposure risk/Travel Screening: None identified. mt4 Primary Survey: 02:04 NO uncontrolled hemorrhage observed. Breathing/Chest: Spontaneous respiratory effort, ha1 equal unlabored respirations, breath sounds clear bilaterally, regular pattern, symmetrical chest rise and fall. Circulation: No external hemorrhage present. Regular and strong central pulse, skin warm/dry/normal color. Disability Pupils are equal, round, reactive to light and accommodation. Exposure/Environment: All clothing and personal items were removed. Forensic evidence collection is not deemed to be indicated at this time. Items placed in patient belonging bag. Assessment: 02:07 Reassessment: Patient is alert, oriented x 3, equal unlabored respirations, skin mt4 warm/dry/pink. General: Appears in no apparent distress. comfortable, Behavior is calm, cooperative, appropriate for age. Pain: Complains of pain in pelvis Pain currently is 8 out of 10 on a pain scale. Quality of pain is described as aching, throbbing, Pain began suddenly, 1 hour ago. Is. Neuro: Level of Consciousness is awake, alert, obeys commands, Oriented to person, place, time, situation, Analytics Director are Speech is normal, Facial symmetry appears normal. Cardiovascular: Capillary refill < 3 seconds. Respiratory: Airway is patent Respiratory effort is even, unlabored, Respiratory pattern is regular, symmetrical. GI: Abdomen is round non-distended, obese. : No signs and/or symptoms were reported regarding the genitourinary system. Derm:. Musculoskeletal: Capillary refill < 3 seconds, Range of motion: intact in all extremities. 04:51 General: Appears in no apparent distress. comfortable, Behavior is calm, cooperative, mt4 appropriate for age. Pain:. Neuro: Level of Consciousness is awake, alert, obeys commands, Oriented to person, place, time, situation. Respiratory: Airway is patent. GI:. GI: No signs and/or symptoms were reported involving the gastrointestinal system. Vital Signs: 01:57 BP 142 / 60; Pulse 60; Resp 17 S; Temp 97.2(T); Pulse Ox 97% on R/A; Weight 67.59 kg; ha1 Height 5 ft. 2 in. ; 02:07 BP 126 / 67; Pulse 57; Resp 16; Temp 96.8(TE); Pulse Ox 98% on R/A; Pain 8/10; mt4 04:50 BP 145 / 65; Pulse 51; Resp 18; Temp 98.1(O); Pulse Ox 93% on R/A; mt4 01:57 Body Mass Index 27.25 (67.59 kg, 157.48 cm) ha1 02:07 Pain Scale: Adult mt4 [place] Coma Score: 02:07 Eye Response: spontaneous(4). Motor Response: obeys commands(6). Verbal Response: mt4 oriented(5). Total: 15. 03:56 Eye Response: spontaneous(4). Motor Response: obeys commands(6). Verbal Response: sp4 oriented(5). Total: 15. Trauma Score (Adult): 02:07 Eye Response: spontaneous(1); Verbal Response: oriented(1); Motor Response: obeys mt4 commands(2); Systolic BP: > 89 mm Hg(4); Respiratory Rate: 10 to 29 per min(4); Alicia Score: 15; Trauma Score: 12 ED Course: 01:56 Patient arrived in ED. [id number] 01:57 Patient has correct armband on for positive identification. Bed in low position. Call ha1 light in reach. Side rails up X2. Adult w/ patient. Client placed on continuous cardiac and pulse oximetry monitoring. NIBP monitoring applied. Door closed. Noise minimized. Warm blanket given. Pillow given. 01:59 Triage completed. ha1 02:02 Fam Brown MD is Attending Physician. sp4 02:04 Patient maintains SpO2 saturation greater than 95% on room air. Thermoregulation: warm ha1 blanket given to patient. 02:07 Taco Gutierrez, RN is Primary Nurse. mt4 02:07 No apparent distress. Resting quietly. mt4 02:07 Provided Education on: fall education . Client placed on continuous cardiac and pulse mt4 oximetry monitoring. NIBP monitoring applied. Pulse ox on. Door closed. Noise minimized. Lights dimmed. 02:07 No provider procedures requiring assistance completed. Patient maintains SpO2 mt4 saturation greater than 95% on room air. 03:01 Femur Left XRAY In Process Unspecified. EDMS 03:17 CT Head Brain wo Cont In Process Unspecified. EDMS 03:17 CT Pelvis wo Cont In Process Unspecified. EDMS 04:51 Patient did not have IV access during this emergency room visit. mt4 04:54 Arm band placed on right wrist. mt4 Administered Medications: 02:40 Drug: HYDROcodone-acetaminophen PO 10 mg-325 mg 1 tabs PO once Route: PO; mt4 04:54 Follow up: Response: No adverse reaction mt4 02:40 Drug: Ondansetron PO 4 mg PO once Route: PO; mt4 04:54 Follow up: Response: No adverse reaction mt4 Medication: 02:07 VIS not applicable for this client. mt4 Outcome: 04:18 Discharge ordered by . sp4 04:52 Discharged to home via wheelchair, mt4 04:52 Condition: stable 04:52 Discharge instructions given to patient, Instructed on discharge instructions, follow up and referral plans. medication usage, Demonstrated understanding of instructions, follow-up care, medications, 04:55 Patient left the ED. mt4 Signatures: Dispatcher [employer] YOSI Nickolas, [place] jj6 Heidi Parker RN RN 1 Fam Brown MD MD sp4 Taco Gutierrez RN RN mt4 Corrections: (The following items were deleted from the chart) 02:17 02:07 Injury Description: mt4 mt4 04:54 01:59 Allergies: Codeine; ha1 mt4 04:54 01:59 Allergies: Demerol; ha1 mt4 04:54 01:59 Allergies: Iodine; ha1 mt4
--- NOTE | 2023-12-12 04:19 | EDPHYS ---
Physician Documentation [facility] Name: Salena Heath Age: 83 yrs Sex: Female : 1940 Arrival Date: 12/12/2023 Time: 01:42 Bed 8 Private MD: ED Physician Fam Brown HPI: 12/11 02:02 This 83 yrs old Female presents to ER via Wheelchair with complaints of Fall sp4 Injury, Head Injury Without LOC-Adult. 03:56 Patient is 83-year-old female who presents with acute fall out of bed associated with sp4 left facial and head injury also left-sided hip pain and injury. Historical: - Allergies: 04:53 Codeine; mt4 04:53 Demerol; mt4 04:53 Iodine; mt4 - Home Meds: 01:59 carvedilol 25 mg Oral tab 1 tab every 12 hours [Active]; levothyroxine 75 mcg tab 1 tab ha1 once daily [Active]; Lexapro 10 mg Oral tab 1 tab once daily [Active]; Flexeril 10 mg Oral tab nightly [Active]; - PMHx: 01:59 Alzheimer's disease; Diabetes - NIDDM; Hypertension; Thyroid problem; ha1 - PSHx: 01:59 Cholecystectomy; hysterectomy; Left Knee Replacment; ha1 - Immunization history:: Adult Immunizations up to date. - Infectious Disease History:: Denies. - Social history:: Smoking status: Patient denies any tobacco usage or history of. - Family history:: not pertinent. ROS: 03:56 Constitutional: Negative for fever, chills, and weight loss, Positive for head injury sp4 and left hip injury and pain 03:56 All other systems are negative, Exam: 03:56 Constitutional: This is a well developed, well nourished patient who is awake, alert, sp4 and in no acute distress. Head/Face: Normocephalic, atraumatic. Eyes: Pupils equal round and reactive to light, extra-ocular motions intact. Lids and lashes normal. Conjunctiva and sclera are not injected. Cornea within normal limits. Periorbital areas with no swelling, redness, or edema. ENT: Nares patent. No nasal discharge, no septal abnormalities noted. Tympanic membranes are normal and external auditory canals are clear. Oropharynx with no redness, swelling, or masses, exudates, or evidence of obstruction, uvula midline. Mucous membranes moist. Neck: Trachea midline, no thyromegaly or masses palpated, and no cervical lymphadenopathy. Supple, full range of motion without nuchal rigidity, or vertebral point tenderness. Chest/axilla: Normal chest wall appearance and motion. Nontender with no deformity. No lesions are appreciated. Cardiovascular: Regular rate and rhythm with a normal S1 and S2. No gallops, murmurs, or rubs. Normal PMI, no JVD. No pulse deficits. Respiratory: Lungs have equal breath sounds bilaterally, clear to auscultation and percussion. No rales, rhonchi or wheezes noted. No increased work of breathing, no retractions or nasal flaring. Abdomen/GI: Soft, with normal bowel sounds. No distension or tympany. No guarding or rebound. No evidence of tenderness throughout. Back: No spinal tenderness. No costovertebral tenderness. Skin: Warm, dry with normal turgor. Normal color with no rashes, no lesions, and no evidence of cellulitis. MS/ Extremity: Pulses equal, no cyanosis. Neurovascular intact. Full, normal range of motion. Neuro: Awake and alert, GCS 15, oriented to person, place, time, and situation. Cranial nerves II-XII grossly intact. Motor strength 5/5 in all extremities. Sensory grossly intact. Psych: Awake, alert, with orientation to person, place and time. Behavior, mood, and affect are within normal limits Vital Signs: 01:57 BP 142 / 60; Pulse 60; Resp 17 S; Temp 97.2(T); Pulse Ox 97% on R/A; Weight 67.59 kg; ha1 Height 5 ft. 2 in. ; 02:07 BP 126 / 67; Pulse 57; Resp 16; Temp 96.8(TE); Pulse Ox 98% on R/A; Pain 8/10; mt4 04:50 BP 145 / 65; Pulse 51; Resp 18; Temp 98.1(O); Pulse Ox 93% on R/A; mt4 01:57 Body Mass Index 27.25 (67.59 kg, 157.48 cm) ha1 02:07 Pain Scale: Adult mt4 Alicia Coma Score: 02:07 Eye Response: spontaneous(4). Motor Response: obeys commands(6). Verbal Response: mt4 oriented(5). Total: 15. 03:56 Eye Response: spontaneous(4). Motor Response: obeys commands(6). Verbal Response: sp4 oriented(5). Total: 15. Trauma Score (Adult): 02:07 Eye Response: spontaneous(1); Verbal Response: oriented(1); Motor Response: obeys mt4 commands(2); Systolic BP: > 89 mm Hg(4); Respiratory Rate: 10 to 29 per min(4); Alicia Score: 15; Trauma Score: 12 MDM: 02:17 Patient medically screened. sp4 03:55 ED course: EXAM DESCRIPTION: XR FEMUR 2 VIEWS LEFT 12/12/2023 3:29 AM CDT CLINICAL sp4 HISTORY: 83 years, Female, Left hip injury. COMPARISON: None. FINDINGS: 2 X-ray views of the left femur (frontal and lateral projections) were performed. Bones: The bones are demineralized No areas of acute bony injuries were demonstrated. Soft tissues: No significant soft tissue swelling. Joints: There are significant degenerative changes within the left hip joint. There is a status post total left knee arthroplasty. Others: There are no gross intraosseous lesions. No periosteal reaction were seen. IMPRESSION: No areas of acute bony injuries were demonstrated. Status post total left knee arthroplasty. . 04:08 ED course: EXAM DESCRIPTION: CT PELVIS WITHOUT IV CONTRAST 12/12/2023 3:31 AM CDT sp4 CLINICAL HISTORY: 83 years, Female, Fall, left hip pain. COMPARISON: XR Pelvis 09/02/2023. FINDINGS: Multiple transaxial tomograms of the pelvis were obtained utilizing 2 mm slight thickness at 2 mm interval reconstruction without the administration of IV contrast. Subsequent to the 3-D multiplanar reformats were generated for subsequent interpretation. An individualized dose optimization technique, Automated Exposure Control, was utilized for the performed procedure. The visualized portions of the large and small bowel demonstrate to be within normal limits. There is diverticulosis within the sigmoid colon : The urinary bladder demonstrate to be unremarkable. Genitalia: The uterus is absent. There are no adnexal masses. The distal portion of the abdominal aorta and iliac arteries demonstrate atherosclerotic disease. There is no evidence for pelvic ascites and/or pelvic lymphadenopathy. The bony elements of the pelvis demonstrate demineralized. No evidence for acute bony injuries. The visualized portions of the lumbar spine demonstrate degenerative changes. The left hip joint with increased sclerosis, decreased intra-articular high space, spur formations and subchondral cysts, less pronounced findings are seen seen within the right hip joint. Sacrum demonstrate to be intact. Iliac bones, superior and inferior pubic ramus demonstrate to be within normal limits. IMPRESSION: No evidence for acute bony injuries. Degenerative changes lumbar spine. Severe osteoarthritis left hip joint. Mild to moderate osteoarthritis right hip joint. Sigmoid diverticulosis. Status post hysterectomy. Electronically signed by: Alonso Valle MD 12/12/2023 03:57 AM. ED course: EXAM DESCRIPTION: CT HEAD WITHOUT IV CONTRAST 12/12/2023 3:33 AM CDT CLINICAL HISTORY: 83 years, Female, Fall. COMPARISON: CT Head and cervical spine 05/29/2021. FINDINGS: Multiple transaxial tomograms of the brain were obtained from the base of the skull to the vertex without contrast. An individualized dose optimization technique, Automated Exposure Control, was utilized for the performed procedure. Brain: The brain demonstrate prominence of the sulci and gyri corresponding to mild brain atrophy. Again there is a old lacunar infarct within the left basal ganglia/lenticulate nuclei. No acute intracranial hemorrhage. No midline shift and/or mass effect. Ventricles: Lateral ventricles and cisterns displace normal appearance. Vasculature: No visualized abnormalities in the arteries or dural venous sinuses. Scalp/skull: The calvarium demonstrate to be intact with no evidence for acute bony injuries. Sinuses: The visualized paranasal sinuses and mastoid air cells demonstrate to be clear. Orbits: No significant abnormalities in the visualized orbital structures. IMPRESSION: No acute intracranial hemorrhage. Mild brain atrophy. 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 No significant interval change. . 04:16 Differential diagnosis: abrasion, closed head injury, contusion, fracture, laceration, sp4 multiple trauma. Data reviewed: vital signs, nurses notes, radiologic studies, CT scan, plain films. Consideration of Admission/Observation Escalation of care including admission/observation considered. ED course: patient managed to stand up and ambulate. At this time stable for discharge home. Will prescribe Tramadol. . 12/11 02:25 Order name: CT Head Brain wo Cont sp4 12/11 02:25 Order name: CT Pelvis wo Cont sp4 12/11 02:26 Order name: Femur Left XRAY sp4 Administered Medications: 02:40 Drug: HYDROcodone-acetaminophen PO 10 mg-325 mg 1 tabs PO once Route: PO; mt4 04:54 Follow up: Response: No adverse reaction mt4 02:40 Drug: Ondansetron PO 4 mg PO once Route: PO; mt4 04:54 Follow up: Response: No adverse reaction mt4 Disposition Summary: 12/12/23 04:18 Discharge Ordered Notes: Location: Home sp4 Problem: new sp4 Symptoms: have improved sp4 Condition: Stable sp4 Diagnosis - Acute fall at home, acute left facial contusion, acute left hip contusion and pain, sp4 left hip and buttock contusion Followup: sp4 - With: Private Physician - When: 7 - 10 days - Reason: Recheck today's complaints Discharge Instructions: - Discharge Summary Sheet sp4 - Contusion, [id number] sp4 Forms: - Patient Portal Instructions sp4 Prescriptions: - Tramadol 50 mg Oral tablet - take 1 tablet ORAL route every 8 hours as needed; 20 tablet; Refills: 0, sp4 Product Selection Permitted Signatures: Dispatcher [employer] EDHeidi Cooper RN RN Fam Mojica MD MD sp4 Taco Gutierrez RN RN mt4 Corrections: (The following items were deleted from the chart) 04:54 01:59 Allergies: Codeine; ha1 mt4 04:54 01:59 Allergies: Demerol; ha1 mt4 04:54 01:59 Allergies: Iodine; ha1 mt4
[2023-12-12 05:04] VITALS: BP 145/65; TEMP 98.1; O2SAT 93
--- NOTE | 2023-12-12 05:51 | RAD REPORT ---
EXAM DESCRIPTION: XR FEMUR 2 VIEWS LEFT 12/12/2023 3:29 AM CDT CLINICAL HISTORY: 83 years, Female, Left hip injury. COMPARISON: None. FINDINGS: 2 X-ray views of the left femur (frontal and lateral projections) were performed. Bones: The bones are demineralized No areas of acute bony injuries were demonstrated. Soft tissues: No significant soft tissue swelling. Joints: There are significant degenerative changes within the left hip joint. There is a status post total left knee arthroplasty. Others: There are no gross intraosseous lesions. No periosteal reaction were seen. IMPRESSION: No areas of acute bony injuries were demonstrated. Status post total left knee arthroplasty. Electronically signed by: Alonso Valle MD 12/12/2023 03:47 AM CDT RP Due to temporary technical issues with the PACS/[employer] reporting system, reports are being shu d by the in-house radiologist without review as a courtesy to ensure prompt reporting the interpreting radiologist is fully responsible for the content of the report. Transcribed Date/Time: 12/12/2023 5:51 AM
--- NOTE | 2023-12-12 07:12 | RAD REPORT ---
EXAM DESCRIPTION: CT HEAD WITHOUT IV CONTRAST 12/12/2023 3:33 AM CDT CLINICAL HISTORY: 83 years, Female, Fall. COMPARISON: CT Head and cervical spine 05/29/2021. FINDINGS: Multiple transaxial tomograms of the brain were obtained from the base of the skull to the vertex wit hout contrast. An individualized dose optimization technique, Automated Exposure Control, was utilized for the perfo rmed procedure. Brain: The brain demonstrate prominence of the sulci and gyri corresponding to mild brain atrophy. Ag ain there is a old lacunar infarct within the left basal ganglia/lenticulate nuclei. No acute intracranial hemorrhage. No midline shift and/or mass effect. Ventricles: Lateral ventricles and cisterns displace normal appearance. Vasculature: No visualized abnormalities in the arteries or dural venous sinuses. Scalp/skull: The calvarium demonstrate to be intact with no evidence for acute bony injuries. Sinuses: The visualized paranasal sinuses and mastoid air cells demonstrate to be clear. Orbits: No significant abnormalities in the visualized orbital structures. IMPRESSION: No acute intracranial hemorrhage. Mild brain atrophy. 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 No significant interval change. Electronically signed by: Alonso Valle MD 12/12/2023 03:54 AM CDT RP Due to temporary technical issues with the PACS/[employer] reporting system, reports are being shu d by the in-house radiologist without review as a courtesy to ensure prompt reporting the interpreting radiologist is fully responsible for the content of the report. Transcribed Date/Time: 12/12/2023 7:12 AM
--- NOTE | 2023-12-12 07:13 | RAD REPORT ---
EXAM DESCRIPTION: CT PELVIS WITHOUT IV CONTRAST 12/12/2023 3:31 AM CDT CLINICAL HISTORY: 83 years, Female, Fall, left hip pain. COMPARISON: XR Pelvis 09/02/2023. FINDINGS: Multiple transaxial tomograms of the pelvis were obtained utilizing 2 mm slight thickness at 2 mm int erval reconstruction without the administration of IV contrast. Subsequent to the 3-D multiplanar reformats were generated for subsequent interpretation. An individualized dose optimization technique, Automated Exposure Control, was utilized for the perfo rmed procedure. The visualized portions of the large and small bowel demonstrate to be within normal limits. There is diverticulosis within the sigmoid colon : The urinary bladder demonstrate to be unremarkable. Genitalia: The uterus is absent. There are no adnexal masses. The distal portion of the abdominal aorta and iliac arteries demonstrate atherosclerotic disease. There is no evidence for pelvic ascites and/or pelvic lymphadenopathy. The bony elements of the pelvis demonstrate demineralized. No evidence for acute bony injuries. The visualized portions of the lumbar spine demonstrate degenerative changes. The left hip joint with increased sclerosis, decreased intra-articular high space, spur formations an d subchondral cysts, less pronounced findings are seen seen within the right hip joint. Sacrum demonstrate to be intact. Iliac bones, superior and inferior pubic ramus demonstrate to be within normal limits. IMPRESSION: No evidence for acute bony injuries. Degenerative changes lumbar spine. Severe osteoarthritis left hip joint. Mild to moderate osteoarthritis right hip joint. Sigmoid diverticulosis. Status post hysterectomy. Electronically signed by: Alonso Valle MD 12/12/2023 03:57 AM CDT Due to temporary technical issues with the PACS/[employer] reporting system, reports are being shu d by the in-house radiologist without review as a courtesy to ensure prompt reporting the interpreting radiologist is fully responsible for the content of the report. Transcribed Date/Time: 12/12/2023 7:13 AM
== END 2023-12-12 04:55 | disposition home or self-care (01) ==
LOC: ER 01:42
DX: S00.83XA Contusion of other part of head, initial encounter (principal); S70.02XA Contusion of left hip, initial encounter; S30.0XXA Contusion of lower back and pelvis, initial encounter; W06.XXXA Fall from bed, initial encounter; E11.9 Type 2 diabetes mellitus without complications; I10 Essential (primary) hypertension; G30.9 Alzheimer's disease, unspecified; F02.80 Dementia in other diseases classified elsewhere, unspecified severity, without behavioral disturbance, psychotic disturbance, mood disturbance, and anxiety; Z96.652 Presence of left artificial knee joint
CPT/HCPCS: 70450; 72192; 99283; Q0162

== ENCOUNTER 2024-11-25 11:58 | Inpatient (IN) | payer OTHER, BC ==
[2024-11-25 12:40] LABS: Absolute Lymphocytes (CBC) 1.1 K/uL (0.7-4.9); Hematocrit 34.9 % (36.0-45.0); Hemoglobin 12.2 g/dL (12.0-15.0); MCH 31.9 pg (27.0-35.0); MCHC 34.9 g/dL (32.0-36.0); MCV 91.4 fL (80-100); MPV 7.4 fL (7.6-11.3); Nucleated Red Blood Cells % 0.1 % (0-0); RBC Red Blood Cell Count 3.82 M/uL (3.86-4.86); White Blood Count 4.40 thou/uL (4.3-10.9)
[2024-11-25 12:41] LABS: Nucleated RBC Absolute Count 0.0 (0-0)
[2024-11-25 12:51] LABS: PT Prothrombin Time 12.3 SECONDS (10-13.0); PTT, Activated Partial Thromb 36.3 SECONDS (27.2-37.4); Protime INR 1.09
--- NOTE | 2024-11-25 12:58 | RAD REPORT ---
EXAMINATION: ONE VIEW CHEST XR CLINICAL INDICATION: weakness TECHNIQUE: Frontal chest projection is submitted. Examination is limited by patient positioning and t echnique. COMPARISON: 11/12/2024 FINDINGS: The lungs are well inflated and clear. The heart is upper limit of normal in size. No displaced fract ures identified. Aortic atherosclerosis. IMPRESSION: No acute intrathoracic abnormalities.
--- NOTE | 2024-11-25 12:58 | RAD REPORT ---
EXAM: CT brain without contrast HISTORY: WEAKNESS COMPARISON: 12/12/2023 TECHNIQUE: Multiple contiguous axial images were obtained and a CT of the brain without contrast. Sag ittal and coronal reformats were performed. One or more of the following dose reduction techniques were used: Automated exposure control, adjust ment of the mA and/or kV according to patient size, and/or iterative reconstruction. FINDINGS: No evidence of hydrocephalus, intracranial hemorrhage, or extra-axial fluid collection. Mild brain atrophy with mild periventricular and deep white matter chronic microvascular ischemic ch anges present. Gliosis noted in the region of the right occipital lobe likely related to old infarct. The calvarium is intact. The visualized paranasal sinuses and mastoid air cells are essentially clear . Mild vertebral atherosclerosis. IMPRESSION: No evidence of acute intracranial abnormality.
[2024-11-25 13:05] LABS: ALT/SGPT 16.0 U/L (13-56); AST/SGOT 14.0 U/L (15-37); Albumin 3.0 g/dL (3.4-5.0); Albumin/Globulin Ratio 0.8 (1.1-1.8); Alkaline Phosphatase 83.0 U/L (45-117); Anion Gap 8.1 mEq/L (5.0-15.0); BUN Blood Urea Nitrogen 21.0 mg/dL (7-18); Bilirubin Indirect, Calculated 0.3 mg/dL (0.2-0.8); Globulin 3.6 g/dL (2.3-3.5); Glucose Level 105.0 mg/dL (74-106); Magnesium 2.0 mg/dL (1.6-2.4); Potassium 4.1 mEq/L (3.5-5.1); Troponin High Sensitivity 4.8 pg/mL (<58.9)
[2024-11-25] MEDS ORDERED: NA CHLORIDE 0.9% 500 ML ONE (13:07)
[2024-11-25 13:08] LABS: Influenza A Ag Negative; Influenza B Ag Negative; SARS-CoV-2 Antigen Rapid Res Negative (Negative)
[2024-11-25 14:46] LABS: Sqamous Epithelial <5 /HPF (None Seen); Urine Culture Reflex Order NOT NEEDED; Urine Microscopic Reflex YN ORDER UMIC
--- NOTE | 2024-11-25 15:30 | EDPHYS ---
Physician Documentation [facility] Name: Slaena Heath Age: 84 yrs Sex: Female : 1940 Arrival Date: 11/25/2024 Time: 11:58 Bed 4 Private MD: ED Physician Josh Almeida HPI: 11/25 12:37 This 84 yrs old Female presents to ER via EMS with complaints of Altered Mental Status, rn General Weakness. 12:37 Patient brought in by EMS for generalized weakness and altered mental status. Last rn known normal was midnight. Patient states could not sit up, had difficulty speaking and breathing and reports generalized weakness without focal weakness. EMS reports with time patient has improved but still reports generalized weakness in all 4 extremities and difficulty standing. Denies any fever or chills. No chest pain or shortness of breath. No abdominal pain. Reports had diarrhea last week but has improved. No blood in stool.. Historical: - Allergies: 12:32 Codeine; hb 12:32 Demerol; hb 12:32 Iodine; hb - Home Meds: 12:32 Actos 15 mg Oral tab 1 tab once daily [Active]; carvedilol 25 mg Oral tab 1 tab every hb 12 hours [Active]; Flexeril 10 mg Oral tab nightly [Active]; glimepiride 4 mg Oral tab twice a day [Active]; Januvia 15 mg Oral once daily [Active]; levothyroxine 75 mcg tab 1 tab once daily [Active]; Norvasc 2.5 mg Oral tab 1 tab once daily [Active]; Lexapro 10 mg Oral tab 1 tab once daily [Active]; - PMHx: 12:32 Alzheimer's disease; Hypertension; Diabetes - NIDDM; Hypothyroidism; OA; hb - PSHx: 12:32 Cholecystectomy; Left Knee Replacment; hysterectomy; Thyroidectomy; hb - Immunization history:: Adult Immunizations up to date. - Infectious Disease History:: Denies. - Social history:: Smoking status: Patient denies any tobacco usage or history of. - Family history:: not pertinent. - Hospitalizations: : No recent hospitalization is reported. ROS: 12:37 Constitutional: Negative for fever, chills, and weight loss, Eyes: Negative for injury, rn pain, redness, and discharge, Neck: Negative for injury, pain, and swelling, Cardiovascular: Negative for chest pain, palpitations, and edema, Respiratory: Negative for shortness of breath, cough, wheezing, and pleuritic chest pain, Abdomen/GI: Negative for abdominal pain, nausea, vomiting, diarrhea, and constipation, Back: Negative for injury and pain, MS/Extremity: Negative for injury and deformity, Skin: Negative for injury, rash, and discoloration, Neuro: Positive for generalized weakness Exam: 12:37 Constitutional: This is a well developed, well nourished patient who is awake, alert, rn and in no acute distress. Head/Face: Normocephalic, atraumatic. ENT: Dry mucous membranes Cardiovascular: Regular rate and rhythm. No pulse deficits. Respiratory: No increased work of breathing, no retractions or nasal flaring. Abdomen/GI: Soft, nontender MS/ Extremity: Pulses equal, no cyanosis. Neuro: Awake and alert, GCS 15, oriented to person, place, time, and situation. Cranial nerves II-XII grossly intact. Motor strength 3+/5 in all extremities. Sensory grossly intact. 15:42 ECG was reviewed by the Attending Physician. rn Vital Signs: 12:31 BP 195 / 64; Pulse 59; Resp 15; Temp 98.3; Pulse Ox 100% on R/A; Pain 0/10; hb 13:04 BP 176 / 86; Pulse 54; Resp 17; Pulse Ox 97% on R/A; hb 14:39 BP 160 / 83; Pulse 56; Resp 17; Pulse Ox 99% ; hb 16:48 BP 186 / 88; Pulse 55; Resp 16; Pulse Ox 99% ; hb 12:31 Pain Scale: Adult hb MDM: 12:23 Medical Screening Exam initiated rn 15:25 Differential Diagnosis: CVA, electrolyte abnormality, hypoglycemia, intracranial bleed, rn pneumonia, UTI, volume depletion. Data reviewed: vital signs, nurses notes, lab test result(s), EKG, radiologic studies, CT scan, plain films, and as a result, I will admit patient. Consideration of Admission/Observation Patient was admitted/placed on observation. Escalation of care including admission/observation considered. Independent interpretation of the following test(s) in the Emergency Department EKG: See my EKG interpretation above X-Ray: My interpretation is CXR images negative for pneumonia or pulmonary edema per my interpretation. monitor car operator: rate is 56 beats/min, Rhythm is sinus bradycardia, with no ectopy, Interpretation: bradycardia. Care significantly affected by the following chronic conditions: Diabetes, Hypertension. Counseling: I had a detailed discussion with the patient and/or guardian regarding the historical points, exam findings, and any diagnostic results supporting the discharge/admit diagnosis, lab results, radiology results, the need for further work-up and treatment in the hospital. Response to treatment: the patient's symptoms have markedly improved after treatment, and as a result, I will admit patient. ED course: Patient much more alert, increase strength, workup reveals urinary tract infection and dehydration. Patient feels much better. Family still concerned about the transient dyspnea that she experienced although explained to them the chest x-ray was negative, there is no oxygen requirement and patient has no dyspnea at this time. Can be worked up further by admitting physician.. 11/25 12:24 Order name: Basic Metabolic Panel; Complete Time: 13: 11/25 12:24 Order name: CBC with Diff; Complete Time: 13:11/25 12:24 Order name: Hepatic Function; Complete Time: 13:11/25 12:24 Order name: Magnesium; Complete Time: 13:11/25 12:24 Order name: Protime (+inr); Complete Time: 13:11/25 12:24 Order name: Ptt, Activated; Complete Time: 13:11/25 12:24 Order name: Troponin High Sensitivity; Complete Time: 13:11/25 12:24 Order name: UA Rfx Sudhakar Cult if indicated; Complete Time: 15:11/25 12:24 Order name: COVID-19 Ag + Flu A+B Ag; Complete Time: 13:11/25 12:24 Order name: CT Head Brain wo Cont; Complete Time: 13:11/25 12:24 Order name: Chest Single View XRAY; Complete Time: 13:11/25 12:24 Order name: Cardiac monitoring; Complete Time: 13:11/25 12:24 Order name: EKG - Nurse/Tech; Complete Time: 13:11/25 12:24 Order name: IV Saline Lock; Complete Time: 12:11/25 12:24 Order name: Labs collected and sent; Complete Time: 13:11/25 12:24 Order name: NPO; Complete Time: 12: rn 11/25 12:24 Order name: O2 Per Protocol; Complete Time: rn 11/25 12:24 Order name: O2 Sat Monitoring; Complete Time: : rn EC:42 Rate is 54 beats/min. Rhythm is regular. IN interval is prolonged. QRS interval is rn normal. QT interval is normal. No Q waves. T waves are Normal. No ST changes noted. Clinical impression: 1st degree heart block. Interpreted by me. Reviewed by me. Administered Medications: 13:00 Drug: NS 0.9% IV 500 ml 500 ml IV at 1 bolus once; to be given as a bolus over 30 hb minutes Volume: 500 ml; Route: IV; Rate: 1 bolus; Site: right antecubital; 16:00 Drug: Rocephin IV 1 grams IV at calculated rate once; Given slow IV push per pharmacy hb instructions Route: IV; Rate: calculated rate; Site: right antecubital; Disposition Summary: 11/25/24 15:30 Hospitalization Ordered Notes: Hospitalization Status: Inpatient Admission rn Provider: Jessica Garner rn Location: Telemetry/MedSurg (Inpatient) rn Condition: Stable rn Problem: new rn Symptoms: have improved rn Bed/Room Type: Standard rn Room Assignment: 414(11/25/24 15:42) bc6 Diagnosis - Altered mental status, unspecified rn - Muscle weakness (generalized) rn - UTI/ Urinary tract infection, site not specified rn Forms: - Medication Reconciliation Form rn - SBAR form rn - Leadership Thank You Letter rn Signatures: Dispatcher [employer] EDJosh Singleton MD MD rn Baxter, Heather, RN RN hb Carowatson, Breana bc6 Corrections: (The following items were deleted from the chart) 12: 12:24 BASIC METABOLIC PANEL+C.LAB.BRZ ordered. EDMS EDMS : 12:24 CBC+H.LAB.BRZ ordered. EDMS EDMS : 12:24 HEPATIC FUNCTION+C.LAB.BRZ ordered. EDMS EDMS : 12:24 MAGNESIUM+C.LAB.BRZ ordered. EDMS EDMS : 12:24 PROTIME (+INR)+COAG.LAB.BRZ ordered. EDMS EDMS 12:24 PTT, ACTIVATED+COAG.LAB.BRZ ordered. EDMS EDMS 12:24 Troponin High Sensitivity+C.LAB.BRZ ordered. EDMS EDMS 12:24 UA Rfx Sudhakar Cult if indicated+U.LAB.BRZ ordered. EDMS EDMS 12:24 COVID-19 Ag + Flu A+B Ag+I.LAB.BRZ ordered. EDMS EDMS 12:25 Head Brain Wo Cont+CT.RAD.BRZ ordered. EDMS EDMS 12:25 Chest Single View+RAD.RAD.BRZ ordered. EDMS EDMS 12: 12:32 Home Meds: Januvia 15 mg Oral once daily; hb hb 12:34 12:32 Home Meds: levothyroxine 75 mcg tab 1 tab once daily; hb hb 15:42 15:30 rn bc6
--- NOTE | 2024-11-25 15:30 | ER ---
Nurse's Notes [facility] Name: Salena Heath Age: 84 yrs Sex: Female : 1940 Arrival Date: 11/25/2024 Time: 11:58 Bed 4 Private MD: Diagnosis: Altered mental status, unspecified;Muscle weakness (generalized);UTI/ Urinary tract infection, site not specified Presentation: 11/25 12:31 Chief complaint: EMS states: Generalized weakness and more confused than normal upon hb waking today. Coronavirus screen: At this time, the client does not indicate any symptoms associated with coronavirus-19. Ebola Screen: No symptoms or risks identified at this time. Initial Sepsis Screen: Does the patient meet any 2 criteria? No. Patient's initial sepsis screen is negative. Does the patient have a suspected source of infection? No. Patient's initial sepsis screen is negative. Risk Assessment: Do you want to hurt yourself or someone else? Patient reports no desire to harm self or others. Onset of symptoms was November 25, 2024. 12:31 Acuity: LUZ 2 hb 12:31 Method Of Arrival: EMS: [facility] hb Historical: - Allergies: 12:32 Codeine; hb 12:32 Demerol; hb 12:32 Iodine; hb - Home Meds: 12:32 Actos 15 mg Oral tab 1 tab once daily [Active]; carvedilol 25 mg Oral tab 1 tab every hb 12 hours [Active]; Flexeril 10 mg Oral tab nightly [Active]; glimepiride 4 mg Oral tab twice a day [Active]; Januvia 15 mg Oral once daily [Active]; levothyroxine 75 mcg tab 1 tab once daily [Active]; Norvasc 2.5 mg Oral tab 1 tab once daily [Active]; Lexapro 10 mg Oral tab 1 tab once daily [Active]; - PMHx: 12:32 Alzheimer's disease; Hypertension; Diabetes - NIDDM; Hypothyroidism; OA; hb - PSHx: 12:32 Cholecystectomy; Left Knee Replacment; hysterectomy; Thyroidectomy; hb - Immunization history:: Adult Immunizations up to date. - Infectious Disease History:: Denies. - Social history:: Smoking status: Patient denies any tobacco usage or history of. - Family history:: not pertinent. - Hospitalizations: : No recent hospitalization is reported. Screenin:05 [facility] ED Fall Risk Assessment (Adult) History of falling in the last 3 months, hb including since admission No falls in past 3 months (0 pts) Confusion or Disorientation Yes (5 pts) Intoxicated or Sedated No (0 pts) Impaired Gait Yes (1 pt) Mobility Assist Device Used Yes (1 pt) Altered Elimination Yes (1 pt) Score/Fall Risk Level 3 or more points = High Risk Oriented to surroundings, Maintained a safe environment, Educated pt \T\ family on fall prevention, incl call for assistance when getting out of bed. Abuse screen: Denies threats or abuse. Denies injuries from another. Nutritional screening: No deficits noted. Tuberculosis screening: No symptoms or risk factors identified. Assessment: 14:39 Reassessment: Patient appears in no apparent distress at this time. No changes from hb previously documented assessment. Patient and/or family updated on plan of care and expected duration. Pain level reassessed. 16:48 Reassessment: Patient appears in no apparent distress at this time. No changes from hb previously documented assessment. Patient and/or family updated on plan of care and expected duration. Pain level reassessed. Vital Signs: 12:31 BP 195 / 64; Pulse 59; Resp 15; Temp 98.3; Pulse Ox 100% on R/A; Pain 0/10; hb 13:04 BP 176 / 86; Pulse 54; Resp 17; Pulse Ox 97% on R/A; hb 14:39 BP 160 / 83; Pulse 56; Resp 17; Pulse Ox 99% ; hb 16:48 BP 186 / 88; Pulse 55; Resp 16; Pulse Ox 99% ; hb 12:31 Pain Scale: Adult hb ED Course: 12:23 Patient arrived in ED. iw 12:23 Josh Almeida MD is Attending Physician. rn 12:32 Triage completed. hb 12:34 Rosenda Le, RN is Primary Nurse. hb 12:34 Arm band placed on. hb 12:49 Chest Single View XRAY In Process Unspecified. EDMS 12:50 CT Head Brain wo Cont In Process Unspecified. EDMS 13:05 Maintain EMS IV. Dressing intact. Good blood return noted. Site clean \T\ dry. Gauge \T\ hb site: 20 RFA. Flushed with 10 mL NS. 14:39 UA Rfx Sudhakar Cult if indicated Sent. hb 15:29 Garner, A, MD is Hospitalizing Provider. rn Administered Medications: 13:00 Drug: NS 0.9% IV 500 ml 500 ml IV at 1 bolus once; to be given as a bolus over 30 hb minutes Volume: 500 ml; Route: IV; Rate: 1 bolus; Site: right antecubital; 16:00 Drug: Rocephin IV 1 grams IV at calculated rate once; Given slow IV push per pharmacy hb instructions Route: IV; Rate: calculated rate; Site: right antecubital; Outcome: 15:30 Decision to Hospitalize by Provider. rn 17:32 Patient left the ED. rn Signatures: Dispatcher [employer] Magalie Renee RN RN iw Nieto, Roman, MD MD rn Baxter, Heather, RN RN hb Corrections: (The following items were deleted from the chart) 12:34 12:32 Home Meds: Januvia 15 mg Oral once daily; hb hb 12:34 12:32 Home Meds: levothyroxine 75 mcg tab 1 tab once daily; hb hb
[2024-11-25] MEDS ORDERED: CEFTRIAXONE 1000 MG/VIAL ONE (16:20)
[2024-11-25] MEDS ORDERED: ONDANSETRON 4 MG/2 ML VIAL IV PRN (17:45)
[2024-11-25] MEDS: ACETAMINOPHEN 500 MG TAB PO PRN ×2 (17:52→20:41)
[2024-11-25 18:38] VITALS: BMI 25.6
[2024-11-25] MEDS: GALANTAMINE 4 MG TAB PO SCH (20:42)
[2024-11-25] MEDS: LOSARTAN POTASSIUM 50 MG TABLET PO SCH (20:42)
[2024-11-25] MEDS: TRAZODONE 50 MG TABLET PO SCH (20:43)
[2024-11-25] MEDS ORDERED: HOME MED 1 EA UNK (Trazodone Hcl [Trazodone Hcl] 100 MG Tablet) PO SCH (21:00)
[2024-11-25] MEDS ORDERED: LOSARTAN POTASSIUM 50 MG TABLET PO SCH (21:00)
[2024-11-25] MEDS ORDERED: GALANTAMINE HBR 12 MG PO SCH (21:00)
--- NOTE | 2024-11-26 04:02 | HP ---
Date of Admission: 11/25/2024 Chief Complaint: Feeling weak and short of breath. History Of Present Illness: This is an 84-year-old pleasant female patient who was brought into emergency room today with generalized weakness and shortness of breath. Family reports that patient is really having hard time getting around because of the shortness of breath. She denies any chest pain. The patient informs me that for last 2 nights every time, she lies down, she is having trouble breathing. She denies any chest pain. No leg swelling. No cough, cold, congestion, fever, chills, nausea, vomiting, diarrhea. After she was evaluated in the emergency room, she was admitted to the hospital. When and I saw her this evening, she was still in the emergency room. Her family members were with her at bedside. Medications: Albuterol inhaler 2 puffs 4 times a day as needed, aspirin 81 mg daily, carvedilol 25 mg takes half a tablet 2 times a day, Vitamin D3 1000 units daily, escitalopram 20 mg daily, galantamine 12 mg daily, levothyroxine 50 mcg daily, magnesium oxide 400 mg daily, pantoprazole 40 mg daily, pioglitazone 15 mg daily, trazodone 100 mg takes 1-1/2 tablet daily at bedtime, and atorvastatin 40 mg daily at bedtime. Allergies: TO CODEINE CAUSING NAUSEA, DEMEROL CAUSING NAUSEA. Review of Systems: Constitutional: As mentioned above. Respiratory: As mentioned above. All other systems reviewed and negative. Past Medical History: Significant for chronic kidney disease stage IIIA, hypertension, type 2 diabetes mellitus with chronic kidney disease, hypomagnesemia, hypothyroidism, hyperlipidemia, gastroesophageal reflux disease, depression, insomnia, fatigue, osteoarthritis at multiple sites, and orthostatic hypotension. Past Surgical History: Tonsillectomy, thyroidectomy, cholecystectomy, appendectomy, hysterectomy, back surgery, and left knee surgery. Family History: Father , had bone cancer. Mother , had hypertension, hyperlipidemia, osteoarthritis. Daughter has fibromyalgia. Social History: Negative for smoking and alcohol use. Physical Examination: Vital Signs: Blood pressure 195/64, pulse 59, respiratory rate 15, temperature 98.3, oxygen saturation 100%. Height 62 inches, weight 140 pounds. General: Awake, alert, oriented, not in distress. HEENT: Head atraumatic, normocephalic. Conjunctivae nonerythematous. Sclerae white. Mouth, no thrush or edema noted. Ears/Nose, no mass, lesion, discharge noted. Neck: Supple. No JVD, lymph nodes, bruit, thyromegaly noted. Lungs: Bilateral good equal air entry. Clear to auscultation. No rhonchi. No rales. Heart: Normal heart sounds, no murmur or gallop. Abdomen: Soft, bowel sounds normal. No guarding, rigidity, tenderness, mass, hepatosplenomegaly, distention, or bruit noted. Extremities: No leg edema. No calf tenderness. Skin: No rash, ulcer, cellulitis. Lymphatics: No lymph node enlargement in neck, supraclavicular, infraclavicular region. Neuro: No focal neurological deficit. Chest: Unremarkable. External Genitalia: Deferred. Rectal: Deferred. Laboratory Data: WBC 4.4, hemoglobin 12.2, platelets 234. Sodium 138, potassium 4.1, chloride 107, bicarb 27, BUN 21, creatinine 1.09, glucose 105. Liver function tests are unremarkable. Troponin 4.8. Urinalysis: Urine appearance turbid, nitrites 2+, otherwise negative for bacteria, rbc's less than 5, wbc's less than 5, leukocyte esterase negative. Influenza A, B, and COVID-19 tests are negative. Chest x-ray, no acute cardiopulmonary changes. CAT scan of the head, no acute intracranial changes. Impression: 1. Dyspnea. 2. Generalized weakness. 3. Coronary artery disease. 4. Hypertension. 5. Hyperlipidemia. 6. Type 2 diabetes mellitus with chronic kidney disease. 7. Chronic kidney disease, stage 3A. 8. Osteoarthritis, multiple sites. 9. Hypothyroidism. 10. Gastroesophageal reflux disease. 11. Depression. Plan: We will go ahead and admit the patient to hospital for further evaluation and management of this problem. The patient is appropriate for inpatient and is expected to spend 2 midnights in hospital. The patient has generalized weakness and dyspnea, including paroxysmal nocturnal dyspnea and orthopnea, but one has to worry about possibility of congestive heart failure, even though her lung exam is clear and there is no evidence of any peripheral edema. She has not had any echocardiogram done recently, so I have ordered it to be done for tomorrow. I have also ordered troponin. I have ordered D-dimer and if that comes back abnormal, then we will order CT chest per PE protocol. Otherwise, CAT scan of the chest without contrast will be done tomorrow. She is listed as allergic to iodine, but she really did not have any reaction to IV iodine, which she received recently during her recent hospital admission about 2 weeks ago when she was admitted with unstable angina and had coronary angiogram, which revealed mild coronary artery disease and medical management was suggested for that. For her hypertension, we will continue antihypertensive medication and monitor blood pressure. If necessary, adjust medication. Diabetes will be managed with her oral hypoglycemic medication. No need for further intervention. For hyperlipidemia, we will continue her statin therapy. No need for further intervention. Her oxygen saturation while I was visiting her in the emergency room was 100% on room air. Total time spent 65 minutes including review of last hospital admission record from 11/10/2024, review of coronary angiogram done during that hospital admission, review of last office visit record from 11/17/2024, communication with emergency room provider, review of emergency room visit record, and performing today's evaluation and management. Details and plan of treatment discussed with family members, that is patient's 3 daughters who were at bedside with her. KIMBERLEY/MODL Voice ID: [id number] MTDD
[2024-11-26 04:37] LABS: Absolute Lymphocytes (CBC) 1.3 K/uL (0.7-4.9); Hematocrit 33.5 % (36.0-45.0); Hemoglobin 11.5 g/dL (12.0-15.0); MCH 31.3 pg (27.0-35.0); MCHC 34.2 g/dL (32.0-36.0); MCV 91.7 fL (80-100); MPV 7.6 fL (7.6-11.3); Nucleated RBC Absolute Count 0.0 (0-0); Nucleated Red Blood Cells % 0.1 % (0-0); RBC Red Blood Cell Count 3.66 M/uL (3.86-4.86); White Blood Count 4.10 thou/uL (4.3-10.9)
[2024-11-26 04:41] LABS: Anion Gap 9.8 mEq/L (5.0-15.0); BUN Blood Urea Nitrogen 18.0 mg/dL (7-18); Glucose Level 87.0 mg/dL (74-106); Potassium 3.8 mEq/L (3.5-5.1)
[2024-11-26] MEDS: CEFTRIAXONE 1,000 MG in NA CHLORIDE 0.9% 50 ML IVPB SCH (04:48)
[2024-11-26] MEDS: LEVOTHYROXINE SOD 0.05 MG TABLET PO SCH (05:33)
[2024-11-26] MEDS: ASPIRIN EC 81 MG TAB PO SCH (08:30)
[2024-11-26] MEDS: PIOGLITAZONE 15 MG TAB PO SCH (08:32)
[2024-11-26] MEDS: ESCITALOPRAM 20 MG TAB PO SCH (08:32)
[2024-11-26] MEDS ORDERED: HOME MED 1 EA UNK (Aspirin [Aspirin] 81 MG Tablet) PO SCH (09:00)
[2024-11-26] MEDS: PANTOPRAZOLE 40MG TABLET PO SCH (09:00)
[2024-11-26 10:16] VITALS: O2SAT 96
[2024-11-26] MEDS: METHYLPREDNISOLONE 40 MG INJ IV ONE (11:12)
[2024-11-26] MEDS: DIPHENHYDRAMINE 50 MG/ML VIAL IV ONE (11:12)
--- NOTE | 2024-11-26 11:54 | P.PN ---
Date of Service: 11/26/24 Subjective: feeling better but still feels having to work on breathing no new/worsening denies swelling no chest pain Physical Exam: GEN: Alert, oriented, NAD CV: Regular rate and rhythm, no edema Pulm: Nonlabored respirations on room air, clear bilaterally ABD: soft, nontender, nondistended Neuro: Normal speech, normal affect Problem List: Dyspnea, Orthopnea Generalized weakness CKD3A NIDDM2 CAD GERD Depression Hypertension Hyperlipidemia Hypothyroidism Osteoarthritis Dyspnea, Orthopnea Generalized weakness on admission, presents with worsening shortness of breath associated with generalized weakness and increased confusion. CT head negative. CXR negative. D-dimer elevated. CTA negative for PE - noted atelectasis and mild pulm edema Echo ordered to eval EF / stenosis Flu/Covid Negative. family report they felt patient was dehydrated, and told of UTI in ER, on rocephin UA positive for nitrite only family state prior UTIs have been marked by weakness Continue empiric Rocephin (11/26-) CKD3A Monitor renal function. Stable NIDDM2 accu-cheks, SSI confirm meds CAD GERD Depression Hypertension Hyperlipidemia Hypothyroidism Osteoarthritis confirm home meds, restart as appropriate resume home trazodone, protonix, synthroid, razadyne, lexapro, coreg, asa 81mg VTE: SCD Dispo: Home , ~24hrs Time Spent Managing Pts Care (In Minutes): 45
--- NOTE | 2024-11-26 12:18 | RAD REPORT ---
EXAMINATION: CTA CHEST PE CLINICAL INDICATION: r/o PE TECHNIQUE: This examination was performed according to an angiographic protocol with 3D post-processi ng. This involves 3D reconstructions, MIPs, volume rendered images and/or shaded surface rendering. One or more of the following dose reduction techniques were used: Automated exposure control, adjustm ent of the mA and/or kV according to patient size, and/or iterative reconstruction. Unless otherwise specified, incidental findings do not require dedicated imaging follow-up. COMPARISON: No prior exam. FINDINGS: PULMONARY ARTERIES: Normal caliber. No evidence of pulmonary emboli to the subsegmental level. THORACIC AORTA: Normal caliber and configuration. Moderate stenosis is seen about origin of the left subclavian artery. LUNGS: Mild interstitial pulmonary edema suspected. Mild linear atelectasis in both lung bases. PLEURA: No pleural effusion. No pneumothorax. MEDIASTINUM AND LYMPH NODES: No mediastinal mass or fluid collection. Normal size mediastinal, hilar, and axillary lymph nodes. Mild cardiomegaly. OSSEOUS STRUCTURES AND CHEST WALL: Intact. UPPER ABDOMEN: No significant abnormalities. IMPRESSION: No evidence of pulmonary emboli to the subsegmental level. Mild CHF likely present.
[2024-11-27 06:24] LABS: Absolute Lymphocytes (CBC) 1.1 K/uL (0.7-4.9); Hematocrit 34.8 % (36.0-45.0); Hemoglobin 12.3 g/dL (12.0-15.0); MCH 32.0 pg (27.0-35.0); MCHC 35.4 g/dL (32.0-36.0); MCV 90.4 fL (80-100); MPV 7.2 fL (7.6-11.3); Nucleated RBC Absolute Count 0.0 (0-0); Nucleated Red Blood Cells % 0.3 % (0-0); RBC Red Blood Cell Count 3.85 M/uL (3.86-4.86); White Blood Count 5.90 thou/uL (4.3-10.9)
[2024-11-27 06:40] LABS: Anion Gap 8.1 mEq/L (5.0-15.0); BUN Blood Urea Nitrogen 16.0 mg/dL (7-18); Glucose Level 104.0 mg/dL (74-106); Magnesium 2.0 mg/dL (1.6-2.4); Potassium 4.1 mEq/L (3.5-5.1)
--- NOTE | 2024-11-27 10:49 | P.DS ---
Admission Date: 11/25/24 Discharge Date: 11/27/24 Disposition: ROUTINE DISCHARGE Discharge Condition: GOOD Brief History of Present Illness: 84yo F, PMH: CKD3A, NIDDM2, CAD, GERD, Depression, HTN, HLD, Hypothyroidism, Osteoarthritis Patient who was brought into emergency room today with generalized weakness and shortness of breath. Family reports that patient is really having hard time getting around because of the shortness of breath. She denies any chest pain. The patient informs me that for last 2 nights every time, she lies down, she is having trouble breathing. She denies any chest pain. No leg swelling. No cough, cold, congestion, fever, chills, nausea, vomiting, diarrhea. After she was evaluated in the emergency room, she was admitted to the hospital. When and I saw her this evening, she was still in the emergency room. Her family members w ere with her at bedside Hospital Course: Problem List: Dyspnea, Orthopnea secondary to atelectasis Questionable UTI Generalized weakness CKD3A NIDDM2 CAD GERD Depression Hypertension Hyperlipidemia Hypothyroidism Osteoarthritis Patient presented to ER after waking up with shortness of breath and reported generalized weakness. Bloodwork and imaging in ER was rather unremarkable. Urinalysis was positive for nitrites but negative for leuk est, WBCs, Bacteria. BNP was 800 - down from 1000 earlier in the month. D-dimer mildly elevated. CTA was performed and negative for pulmonary embolus, did note bilateral lung atelectasis and mild interstitial pulmonary edema. An Echo was performed, but due to tech issues, won't have a report/result until next week. She had some improvement of her respirations and did not require oxygen supplementation. It was felt that her symptoms were likely secondary to her atelectasis - due to not ambulating much anymore from her hip pain. A possible small component of congestive heart failure. This is the 2nd episode she has had in the last 2-3 weeks. Recommend incentive spirometer - a few times every hour. Follow up with Dr. Garner this coming week to review echo results. Discussed other possible factors - possible sleep apnea, possibly multifactorial - with atelectasis, mild pulmonary edema, and her sleep aid medication. Urine was reportedly turbid and +nitrites in the ER. Patient denied having any dysuria. Family reported she gets weak with prior UTIs, and feel she has been urinating a bit more than usual lately. For this reason she was empirically treated with IV rocephin and received 48hrs of IV antibiotics. Questionable if has a true UTI, however given her risk, her presentation, and having already received antibiotics, will prescribe PO cefdinir for 3 more days - to complete a 5 day course of antibiotic. Blood pressure was again noted to be elevated. Dr. Garner added 25mg losartan to her medications, and she will be discharged home with losartan 25mg daily. Continue other home medications as previously prescribed. Physical Exam: GEN: Alert, oriented, NAD CV: Regular rate and rhythm, no edema Pulm: Nonlabored respirations on room air, clear bilaterally ABD: soft, nontender, nondistended Neuro: Normal speech, normal affect Vital Signs/Physical Exam: Temp Pulse Resp BP Pulse Ox 97.9 F 75 16 182/89 H 95 11/27/24 08:00 11/27/24 09:01 11/27/24 08:00 11/27/24 09:01 11/27/24 08:00 Laboratory Data at Discharge: WBC 5.90 thou/uL (4.3-10.9) 11/27/24 06:07 Hgb 12.3 g/dL (12.0-15.0) 11/27/24 06:07 Hct 34.8 % (36.0-45.0) L 11/27/24 06:07 Plt Count 236 thou/uL (152-406) 11/27/24 06:07 PT 12.3 SECONDS (10-13.0) 11/25/24 12:28 INR 1.09 11/25/24 12:28 APTT 36.3 SECONDS (27.2-37.4) 11/25/24 12:28 Sodium 139 mEq/L (136-145) 11/27/24 06:07 Potassium 4.1 mEq/L (3.5-5.1) 11/27/24 06:07 BUN 16 mg/dL (7-18) 11/27/24 06:07 Creatinine 0.99 mg/dL (0.55-1.02) 11/27/24 06:07 Glucose 104 mg/dL (74-106) 11/27/24 06:07 Magnesium 2.0 mg/dL (1.6-2.4) 11/27/24 06:07 Total Bilirubin 0.5 mg/dL (0.2-1.0) 11/25/24 12:28 AST 14 U/L (15-37) L 11/25/24 12:28 ALT 16 U/L (13-56) 11/25/24 12:28 Alkaline Phosphatase 83 U/L (45-117) 11/25/24 12:28 Home Medications: Carvedilol [Coreg] 12.5 mg PO BID 04/19/19 Escitalopram Oxalate 20 mg PO DAILY 04/19/19 Levothyroxine [Synthroid*] 50 mcg PO [id number] 04/19/19 Pioglitazone [Actos*] 15 mg PO DAILY 04/19/19 Galantamine HBr 12 mg PO BID 11/10/24 Pantoprazole [Protonix Tab*] 40 mg PO DAILY 11/10/24 Trazodone HCl 100 mg PO BEDTIME 11/10/24 Aspirin 81 mg PO DAILY 11/25/24 Levothyroxine [Synthroid*] 1 tab PO DAILY 11/25/24 Cefdinir [Cefdinir*] 300 mg PO BID 3 Days #6 cap 11/27/24 Losartan Potassium [Cozaar] 25 mg PO DAILY 30 Days #30 tab 11/27/24 New Medications: Cefdinir [Cefdinir*] 300 mg PO BID 3 Days #6 cap Losartan Potassium [Cozaar] 25 mg PO DAILY 30 Days #30 tab Physician Discharge Instructions: Patient presented to ER after waking up with shortness of breath and reported generalized weakness. Bloodwork and imaging in ER was rather unremarkable. Urinalysis was positive for nitrites but negative for leuk est, WBCs, Bacteria. BNP was 800 - down from 1000 earlier in the month. D-dimer mildly elevated. CTA was performed and negative for pulmonary embolus, did note bilateral lung atelectasis and mild interstitial pulmonary edema. An Echo was performed, but due to tech issues, won't have a report/result until next week. She had some improvement of her respirations and did not require oxygen supplementation. It was felt that her symptoms were likely secondary to her atelectasis - due to not ambulating much anymore from her hip pain. A possible small component of congestive heart failure. This is the 2nd episode she has had in the last 2-3 weeks. Recommend incentive spirometer - a few times every hour. Follow up with Dr. Garner this coming week to review echo results. Discussed other possible factors - possible sleep apnea, possibly multifactorial - with atelectasis, mild pulmonary edema, and her sleep aid medication. Urine was reportedly turbid and +nitrites in the ER. Patient denied having any dysuria. Family reported she gets weak with prior UTIs, and feel she has been urinating a bit more than usual lately. For this reason she was empirically treated with IV rocephin and received 48hrs of IV antibiotics. Questionable if has a true UTI, however given her risk, her presentation, and having already received antibiotics, will prescribe PO cefdinir for 3 more days - to complete a 5 day course of antibiotic. Blood pressure was again noted to be elevated. Dr. Garner added 25mg losartan to her medications, and she will be discharged home with losartan 25mg daily. Continue other home medications as previously prescribed. Followup: Carlos Garner MD [Primary Care Provider] - Time spent managing pt's care (in minutes): 45
[2024-11-27 12:11] VITALS: BP 175/81; TEMP 98
== END 2024-11-27 14:17 | disposition home or self-care (01) | DRG 292 ==
LOC: ER 11:58 → ERHOLD 15:35 → 4TH 16:48
PROVIDERS: ADMIT Internal Medicine; ATTEND Hospitalist
DX: I13.0 Hypertensive heart and chronic kidney disease with heart failure and stage 1 through stage 4 chronic kidney disease, or unspecified chronic kidney disease (principal); J98.11 Atelectasis; N39.0 Urinary tract infection, site not specified; I50.9 Heart failure, unspecified; N18.31 Chronic kidney disease, stage 3a; E11.22 Type 2 diabetes mellitus with diabetic chronic kidney disease; E03.9 Hypothyroidism, unspecified; E78.5 Hyperlipidemia, unspecified; F32.A Depression, unspecified; E86.0 Dehydration; M19.90 Unspecified osteoarthritis, unspecified site; K21.9 Gastro-esophageal reflux disease without esophagitis; I25.10 Atherosclerotic heart disease of native coronary artery without angina pectoris; G30.9 Alzheimer's disease, unspecified; F02.80 Dementia in other diseases classified elsewhere, unspecified severity, without behavioral disturbance, psychotic disturbance, mood disturbance, and anxiety; Z88.5 Allergy status to narcotic agent; Z11.52 Encounter for screening for COVID-19; Z79.84 Long term (current) use of oral hypoglycemic drugs; Z79.02 Long term (current) use of antithrombotics/antiplatelets; Z90.49 Acquired absence of other specified parts of digestive tract; Z96.652 Presence of left artificial knee joint; Z79.890 Hormone replacement therapy; Z79.899 Other long term (current) drug therapy
CPT/HCPCS: 36415; 70450; 71045; 71275; 80048; 80076; 81001; 82947; 83735; 83880; 84484; 85025; 85379; 85610; 85730; 87428; 93005; 93306; 94010; 96374; 99284; J0696; J1200; J2919; J7040; Q9967